=== PATIENT | female | born 1955 | race Caucasian/White ===

== ENCOUNTER 2024-01-06 08:40 | Observation (INO) ==
--- NOTE | 2023-12-31 08:52 | Anesthesiology Consultation ---
Date of Service December 31, 2023 Assessment & Plan (1) Encounter for pre-operative examination: Plan - right arm restriction. - medical clearance 12/23/23: "...knee replacement...estimated risk of adverse outcome with non-cardiac surgery. Very low risk. Estimated rate of myocardial infarction, pulmonary edema, ventricular fibrillation, cardiac arrest or complete heart block 0.4%..." - Outpatient joint assessment: Patient is currently scheduled for inpatient pathway. If re-evaluated and patient/surgeon requests outpatient pathway, patient is acceptable candidate for outpatient joint program from anesthesia standpoint pending surgeon's office assessment of pt motivation/support/completion of same day joint program preop requirements. - Per coding file clerk on 12/30/23: No known infectious disease contacts, current infectious disease symptoms in past 10 days or COVID positive test result in the past 30 days. Chart Review Chart Review: Acceptable Risk for Surgery and Patient NOT seen in Pre Admission Testing Consults Requested none History Surgery Operation Date: 01/06/24 10:10 Proposed Procedures p Left Total Knee Arthroplasty - Carlos Mckeon MD Height/Weight Height: 4 ft 10 in Weight: 88.451 kg Allergies Allergy/AdvReac Type Severity Reaction Status Date / Time erythromycin base Allergy Intermediate ITCHY RASH Verified 01/06/24 09:05 house dust mite Allergy Unknown per Verified 01/06/24 09:05 allergy testing Medications Home Medications Medication Instructions Recorded Confirmed Last Taken CPAP Machine #1 ea 09/20/19 04/03/23 Unknown ibuprofen 400 mg tablet 400 mg PO Q8H PRN Pain 03/31/23 01/06/24 12/23/23 Past Medical History Medical History Breast CA (~2011) diagnosed 10/2011--s/p right lumpectomy with LN dissection; s/p chemo/radiation Right UE restriction History of bronchitis History of COVID-19 diagnosed 09/27/2020 > resolved Osteoarthritis Sleep apnea cpap Past Family History Family History Sister Diabetes Breast cancer, Onset Age: 56 Hypertension Brother Diabetes Colorectal cancer, Onset Age: 35 Hypertension Family hx colonic polyps Mother Diabetes Hypertension Father Diabetes Hypertension Other No family history of adverse response to anesthesia Past Surgical History Surgical History History of arthroscopy of left knee History of carpal tunnel release of both wrists History of colonoscopy with polypectomy History of esophagogastroduodenoscopy (EGD) History of lumpectomy of right breast with lymph node removal History of right breast biopsy malignant History of thumb surgery right tendon release History of tooth extraction History of total hysterectomy with bilateral salpingo-oophorectomy (BSO) History of wisdom tooth extraction Hx of section x2 Hx of tubal ligation Status post trigger finger release right thumb Social History Smoking Status: Never smoker Do You Dip or Chew Tobacco: No Hx Alcohol Use: Yes Alcohol type: wine alcohol intake frequency: holidays/special occasions only Hx Substance Use: No substance use type: does not use Testing Laboratory Results 12/19/23 WBC: 7.7 H/H: 12/37 PLATELETS: 279,000 SODIUM: 140 POTASSIUM: 4.1 CHLORIDE: 111 CO2: 21 BUN: 18 CREATININE: 0.6 GLUCOSE: 101 PT: 12 INR: 1 TYPE AND SCREEN: B positive Electrocardiogram Date: 04/01/23 NSR, rate 67 bpm Chest X-Ray Date: 12/19/23 *1view* No acute process. Echocardiogram Date: 07/19/19 EF 65% Normal LV regional wall motion abnormalities No LVH Grade I diastolic dysfunction No significant valvular pathology
[~2024-01-06 08:40] MED LIST: BUPIVACAINE 0.5 % 5 MG/1 ML PF 10ML VIAL ONE; ROPIVACAINE 0.5% 5 MG/ML 30 ML VIAL ONE
--- NOTE | 2024-01-06 09:15 | Anesthesiology Consultation ---
Date of Service January 06, 2024 Assessment & Plan Chart Review Chart Review: Acceptable Risk for Surgery Consults Requested none History Surgery Operation Date: 01/06/24 10:10 Proposed Procedures p Left Total Knee Arthroplasty - Carlos Mckeon MD Height/Weight Height: 4 ft 10 in Weight: 88.451 kg Allergies Allergy/AdvReac Type Severity Reaction Status Date / Time erythromycin base Allergy Intermediate ITCHY RASH Verified 01/06/24 09:05 house dust mite Allergy Unknown per Verified 01/06/24 09:05 allergy testing Medications Home Medications Medication Instructions Recorded Confirmed Last Taken CPAP Machine #1 ea 09/20/19 04/03/23 Unknown ibuprofen 400 mg tablet 400 mg PO Q8H PRN Pain 03/31/23 01/06/24 12/23/23 Past Medical History Medical History Breast CA (~2011) diagnosed 10/2011--s/p right lumpectomy with LN dissection; s/p chemo/radiation Right UE restriction History of bronchitis History of COVID-19 diagnosed 09/27/2020 > resolved Osteoarthritis Sleep apnea cpap Past Family History Family History Sister Diabetes Breast cancer, Onset Age: 56 Hypertension Brother Diabetes Colorectal cancer, Onset Age: 35 Hypertension Family hx colonic polyps Mother Diabetes Hypertension Father Diabetes Hypertension Other No family history of adverse response to anesthesia Past Surgical History Surgical History History of arthroscopy of left knee History of carpal tunnel release of both wrists History of colonoscopy with polypectomy History of esophagogastroduodenoscopy (EGD) History of lumpectomy of right breast with lymph node removal History of right breast biopsy malignant History of thumb surgery right tendon release History of tooth extraction History of total hysterectomy with bilateral salpingo-oophorectomy (BSO) History of wisdom tooth extraction Hx of section x2 Hx of tubal ligation Status post trigger finger release right thumb Social History Smoking Status: Never smoker Do You Dip or Chew Tobacco: No Hx Alcohol Use: Yes Alcohol type: wine alcohol intake frequency: holidays/special occasions only Hx Substance Use: No substance use type: does not use
[2024-01-06] MEDS ORDERED: LIDOCAINE 2% 2 ML VIAL/AMP(20MG/ML) INFIL ONE (09:21)
[2024-01-06] MEDS ORDERED: ONDANSETRON INJ 2 MG/ML 2 ML VIAL ONE (09:21)
[2024-01-06] MEDS ORDERED: PROPOFOL IV EMULSION 10 MG/ML 20 ML VIAL IV ONE ×2 (09:21→13:55)
[2024-01-06] MEDS ORDERED: MIDAZOLAM HCL 1 MG/ML 2ML VIAL ONE ×3 (09:21→11:28)
[2024-01-06] MEDS ORDERED: fentaNYL citrate PF 100 MCG/2 ML VIAL ONE (09:21)
[2024-01-06] MEDS: LR 60ML/HR IV SCH (09:25)
[2024-01-06] MEDS: ACETAMINOPHEN 500 MG TAB PO SCH ×2 (09:27→21:21)
[2024-01-06] MEDS: oxyCODONE HCL 10 MG TABCR (OxyCONTIN) PO SCH (09:27)
[2024-01-06] MEDS: CeleBREX 200 MG CAP PO SCH (09:27)
[2024-01-06] MEDS: METOCLOPRAMIDE HCL 10 MG TABLET PO SCH (09:27)
[2024-01-06] MEDS: FAMOTIDINE 20 MG TAB PO SCH (09:27)
[2024-01-06] MEDS: traMADol HCL 50 MG TABLET PO SCH (09:27)
[2024-01-06] MEDS: GABAPENTIN 300 MG CAP PO SCH (09:27)
[2024-01-06] MEDS ORDERED: fentaNYL citrate PF 100 MCG/2 ML VIAL IV PRN (10:22)
[2024-01-06] MEDS ORDERED: HYDROmorphone INJ 2 MG/ML SYR/VIAL IV PRN (10:22)
[2024-01-06] MEDS ORDERED: PROMETHAZINE HCL 6.25 MG in SODIUM CHLORIDE 0.9% 50 ML IV PRN (10:22)
[2024-01-06] MEDS ORDERED: ONDANSETRON INJ 2 MG/ML 2 ML VIAL IV PRN ×2 (10:22→14:16)
[2024-01-06] MEDS ORDERED: ePHEDrine sulfate 50 MG/ML AMP IV PRN (10:22)
[2024-01-06] MEDS ORDERED: ATROPINE SULFATE 0.1 MG/ML 10ML SYR IV PRN (10:22)
[2024-01-06] MEDS: TRANEXAMIC ACID 1,000 MG **IV Pre-op IV SCH (10:50)
--- NOTE | 2024-01-06 10:54 | History & Physical Bridge Note ---
Date of Service January 06, 2024 History & Physical Bridge Note I have examined the patient, reviewed the History & Physical and in the interval since the performance of the History & Physical I have noted the following changes of clinical significance: no changes noted
[2024-01-06] MEDS ORDERED: PHENYLEPHRINE HCL 10 MG/ML VIAL ONE (11:35)
--- OUTSIDE RECORDS SUMMARY | 2024-01-06 11:59 | External Medical Summary | Continuity of Care Document ---
Author Name Unknown Organization [address] Address [address] [place], [place] [id number] Care Team Providers Care Care Giver Name Role Phone Anastasia Hannon Primary Care Physician [phone] [id number] Date(s): 12/23/23 - 12/23/[address] [address] [phone] Encounter Diagnosis Pre-op exam(Discharge Diagnosis) - 12/23/23 HEATHER on CPAP(Discharge Diagnosis) - 12/23/23 Discharge Disposition: Home or Self Care Attending Physician: DORINA Hannon Tara Referring Physician: DORINA Hannon Tara Allergies, Adverse Reactions, Alerts Substance Reaction Severity Status erythromycin hives Active Dust mite reacted positive to testing Active Assessment and Plan Extracted from: Title:pre op Author:DORINA Hannon Tara Date: 1.Pre-op exam Pt is a non smoker rare etoh and no illicit substances. She has HEATHER for which she uses CPAP. See #2. Her EKG from March 2023 howednormal sinus rhythm normal EKG. No CP or SOB that would warrant repeat EKG. Her labs from 12/19/23 were unremarkable. Estimated Risk of Adverse Outcome with Non-cardiac Surgery Very Low Risk Estimated Rate of Myocardial Infarction, Pulmonary Edema, Ventricular Fibrillation, Cardiac Arrest, or Complete Heart Block 0.4 %\ May proceed with surgery. 2.HEATHER on CPAP Acute/Chronic: chronic Goal:Resolution/ control Status:stable/controlled Data: records/pt report Plan:Using CPAP nightly. No issues. time spent reviewing chart, face to face visit, ordersand documentation: 36 min Immunizations Given and Recorded Vaccine Date Status Refusal Reason pneumococcal 20-valent conjugate vaccine 08/25/23 Given SARS-CoV-2 (COVID-19) mRNA-1273 vaccine 1 05/04/21 Recorded SARS-CoV-2 (COVID-19) mRNA-1273 vaccine 2 04/06/21 Recorded influenza virus vaccine, inactivated 09/09/20 Octavio rded influenza virus vaccine, inactivated 08/27/19 Octavio rded influenza virus vaccine, inactivated 08/27/18 Octavio rded influenza virus vaccine, inactivated 08/26/13 Give n influenza virus vaccine, inactivated 08/13/12 Give n influenza virus vaccine, inactivated 08/02/11 Octavio rded zoster vaccine, inactivated 11/24/19 Given zoster vaccine, inactivated 09/10/19 Given tetanus/diphtheria/pertuss, acel (Tdap) 01/07/12 G iven tetanus/diphtheria/pertuss, acel (Tdap) 03/26/07 R ecorded tetanus/diphtheria/pertuss, acel (Tdap) 12/16/02 R ecorded pneumococcal 23-valent vaccine 01/07/12 Given pneumococcal 23-valent vaccine 10/01/96 Recorded pneumococcal 23-valent vaccine 3 10/01/96 Recorded zoster vaccine live 12/25/11 Given hepatitis A adult vaccine 06/11/10 Recorded 1Result Comment: 2022-08-21: Historical information-source unspecified 2Result Comment: 2022-08-21: Historical information-source unspecified 3Result Comment: [08/26/2013 Uncharted] duplicate Medications CPAP machine Start: 05/27/19 16:08:00 EDT, CPAP machine, eRx Product Type: Supply, See Instructions, Disp# 1 unit, CPAP machine with tubing/supplies & humidifier nightly use, send report in 30 days on compliance & results Start Date: 05/27/19 Status: Ordered CPAP mask & supplies Start: 09/10/19 8:15:00 EDT, CPAP mask & supplies, eRx Product Type: Supply, See Instructions, Disp# 1 each, full face mask with tubing & supplies - order good for lifetime use G47.33, Note to Pharmacy: fit to comfort with mask type when needed Start Date: 09/10/19 Status: Ordered ketoconazole 2% topical cream Start: 11/25/23 9:32:00 EST, 1 appl, topical, bid, Disp# 30 g, Refills: 2, To red scaly fungal areas BID PRN, Pharmacy: [id number] Start Date: 11/25/23 Status: Ordered meloxicam 15 mg oral tablet Start: 02/19/23 8:26:00 EDT, 1 tab, PO, Daily, Disp# 30 tab, Refills: 2, Pharmacy: [id number] Start Date: 02/19/23 Status: Ordered Soolantra 1% topical cream Start: 08/21/22 8:19:00 EDT, See Instructions, Disp# 60 g, Refills: 2, To face daily, Pharmacy: [id number] Start Date: 08/21/22 Status: Ordered Valtrex 1 g oral tablet Start: 11/20/22 8:56:00 EST, See Instructions, Disp# 12 tab, Refills: 1, 2 tab PO at onset of cold sore, repeat in 12 hours then stop, Pharmacy: [id number] Start Date: 11/20/22 Status: Ordered Mental Status 12/23/23 Barriers to Learning one year None evide nt Mandatory Health Literacy Documentation Yes Health Literacy Communication Barriers N ever Primary Language Maori Problem List Condition Confirmation Course Effective Dates Status H ealth Status Informant Arthritis of left knee Confirmed Active Multiple nevi Confirmed Active Chondromalacia, left knee Confirmed Active Family history of diabetes mellitus 1 Confirmed Active Stress incontinence in female 2 Confirmed Active FH: breast cancer in first degree relative Confirmed 12/24/11 Active FH: colon cancer 3, 4 Confirmed 12/24/11 Active FHx: uterine cancer Confirmed 12/24/11 Active Herpes simplex Confirmed Active History of breast cancer Confirmed Active INSOMNIA Confirmed Active Iron overload Confirmed Active Lentigo Confirmed Active Morbid obesity (disorder) Confirmed Active HEATHER on CPAP Confirmed Active Osteoarthritis of left knee Confirmed Active Osteopenia 5 Confirmed 06/03/12 Active Left knee pain Confirmed Active Tinea versicolor Confirmed Active Reactive airway disease Confirmed Active Rosacea Confirmed Active Medial meniscus tear Confirmed Active Weight disorder Confirmed Active 1mother, father, sister, brother 2only with coughing 3Brother at 35 yr. 4Father (?) 5--1.1 LS spine Diagnosis Diagnosis Type Effective Dates Health Status Cl[facility] branden Service Informant Pre-op exam Discharge Diagnosis 12/23/23 HEATHER on CPAP Discharge Diagnosis 12/23/23 Procedures Procedure Date Related Diagnosis Body Site Status Mammogram 1 04/08/23 Completed Procedure 2 04/03/23 Completed MRI of calf of left lower le g with contrast 3 03/25/23 Completed Colonoscopy 4 01/23/21 Completed Colonoscopy 5 01/23/[address] of chest w/ con 6 06/01/19 Comp leted Femoral neck DEXA scan 7 03/02/19 Completed Chest X-ray 8 12/21/18 Completed Colonoscopy 9 09/08/15 Completed Chest x-ray 10 02/27/15 Completed Colonoscopy normal 11 09/02/12 Com pleted DEXA - Dual energy X-ray germán ton absorptiometry 12 06/03/12 Completed Left Central Venous Cather w ith Subcutaneous [place] 12/30/11 Completed right partial mastectomy; se ntinel node biopsy 12/09/11 Completed KATARINA BSO - Total abdominal hy sterectomy and bilateral salpingo-oophorectomy 13 09/08/07 Completed Colonoscopy and polypectomy 14 07/16/07 Completed Bilateral tubal ligation 05/22/83 Completed Carpal tunnel decompression 15 Completed sections (two) C ompleted DeQuervaines release Comp leted Lumpectomy of breast-R Co mpleted port removal Completed S/P tooth extraction Comp leted Trigger thumb release Com pleted 1there is no mammographic evidence of malignancy. a 1 year screening mammogram is recommended 2Repair of left meniscus 31. moderately prominent DJD with high-grade loss of cartilage throughout the medial joint space compartment 2. a probable radial tear is identified of the body of the medial meniscus superimposed upon prominent mucoid degeneration of the medial menisus 3. grade 2 and grade 3 patellar chondromalacia diffusely 4. a moderate-sized joint effusioin is present along with a moderate-size complex medial popliteal cyst 5. a low-grade sprain of the MCL is suspected 4Impression: - The entire examined colon is normal. - No specimens collected. 5The entire examined colon is normal. No specimens collected. Repeat in 5 years. 61. unremarkable postoperative changes right axilla consistent with prior axillary dissection 2. slight nonspecific interstitial change mid and lower lung regions bilaterally 3. several pleual-based nodules within the right hemithorax with f/u recommended per fleischner criteria 7pt considered normal. Z score 0.3 - repeat February 2021 8No active disease in the chest. 9Nonbleeding internal hemorrhoids. Repeat in 5 years. 10No acute findings. No significant change. 11except internal hemorrhoids. Brother with colon cancer at age 35 12--1.1 LS spine 13[place] [facility] [place] 14hyperplastic polyp 15bilateral Vital Signs Most recent to oldest [Reference Range]: 1 Height 151 cm (12/23/23 1:10 PM) Patient Weight 88.9 kg (12/23/23 1:10 PM) Body Mass Index 38.99 kg/m2 (12/23/23 1:10 PM) Temperature [36.5-37.9 DegC] 36.7 DegC (12/23/23 1:10 PM) Heart Rate 74 bpm (12/23/23 1:10 PM) Respiratory Rate 18 br/min (12/23/23 1:10 PM) Blood Pressure 132/88mmHg (12/23/23 1:10 PM) Social History Social History Type Response Smoking Status Never smoked cigaret marques Sex [facility] Outpt Note * DORINA Hannon Tara: PERFORM Event Display: [facility] Outpt Note Authored Date: [id number] Chief Complaint Pre-op for left knee replacement. History of Present Illness Having knee replacement on 01/06/[address] Mckeon. Non smoker, rare drink, no illicit substances. No Claudication No Chest pain No SOB 2 flights of steps No Personal hx of anesthesia complications No Family hx of anesthesia complications No Dental issues No Personal of hx of VTE No Family hx of VTE No Family hx of sudden cardiac Review of Systems Constitutional: No fever, chills, sweats Pulmonary: No shortness of breath, dyspnea with exertion, cough, hemoptysis, wheezing, chest pain. Cardiovascular: No chest pain, palpitations, syncope, edema, cyanosis, claudication, orthopnea. Musculoskeletal: knee pain Neurologic: No headache, lightheadedness, dizziness, muscle weakness. Neuropathy in feet Psychiatric: No depression, anxiety, Endocrine: No weight change, heat or cold intolerance, tremor, insomnia, polyuria, polydipsia, polyphagia, abnormal hair growth, change in nails Physical Exam Vitals & Measurements T:36.7C HR:74(Monitored) RR:18 BP:132/88 SpO2:96% HT:151cm WT:88.900kg(Dosing) WT:88.9kg BMI:38.99 PHQ2 Data(Data Documented on:12/23/2023 13:10) Emotional health assessment NEGATIVE head- normocephalic eyes- PERRLA , conjunctiva clear, sclera white, anicteric, neck-no lymphadenopathy, masses, or thyromegaly, +carotid pulses, no bruits, trachea midline Pulmonary- chest expansion symmetric, CTA (clear to auscultation), eupnea, no adventitious sounds (rales, crackles, wheezes) CV (cardiovascular)- RRR no m/r/g (systolic ejection murmur, rubs, gallops), good peripheral perfusion extremitiesNo edema or erythema. radial pulses present skin-good turgor w/o lesions, redness, cyanosis, edema nails- no clubbing or deformities w good cap refill Neuro:Alert, Oriented. Psy:no homicidal or suicidal ideations. Assessment/Plan 1.Pre-op exam Pt is a non smoker rare etoh and no illicit substances. She has HEATHER for which she uses CPAP. See #2. Her EKG from March 2023 howednormal sinus rhythm normal EKG. No CP or SOB that would warrant repeat EKG. Her labs from 12/19/23 were unremarkable. Estimated Risk of Adverse Outcome with Non-cardiac Surgery Very Low Risk Estimated Rate of Myocardial Infarction, Pulmonary Edema, Ventricular Fibrillation, Cardiac Arrest,or Complete Heart Block 0.4 %\ May proceed with surgery. 2.HEATHER on CPAP Acute/Chronic: chronic Goal:Resolution/ control Status:stable/controlled Data: records/pt report Plan:Using CPAP nightly. No issues. time spent reviewing chart, face to face visit, ordersand documentation: 36 min Problem List/Past Medical History Ongoing Arthritis of left knee Chondromalacia, left knee Family history of diabetes mellitus FH: breast cancer in first degree relative FH: colon cancer FHx: uterine cancer Herpes simplex History of breast cancer INSOMNIA Iron overload Left knee pain Lentigo Medial meniscus tear Morbid obesity (disorder) Multiple nevi HEATHER on CPAP Osteoarthritis of left knee Osteopenia Reactive airway disease Rosacea Stress incontinence in female Tinea versicolor Weight disorder Historical Acute contact dermatitis ASCVD. Breast ca Bronchitis Changing skin lesion Chemotherapy Community acquired pneumonia Cough Eclipse nevi Exertional shortness of breath Fungal infection of skin Hives Impaired fasting glucose Need for prophylactic vaccination and inoculation against influenza Obstructive sleep apnea syndrome Partial mastectomy Pneumonia ROUTINE GENERAL MEDICAL EXAMINATION AT A HEALTH CARE FACILITY Sinus congestion Sleep apnea Procedure/Surgical History Mammogram (04/08/2023)Procedure (04/03/2023)MRI of calf of left lower leg with contrast (03/25/2023)Colonoscopy (01/23/2021)Colonoscopy (01/23/2021)CT of chest w/ con (06/01/2019)Femoral neck DEXA scan (03/02/2019)Chest X-ray (12/21/2018)Colonoscopy (09/08/2015)Chest x-ray (02/27/2015)Colonoscopy normal (09/02/2012)DEXA - Dual energy X-ray photon absorptiometry(06/03/2012)Left Central Venous Cather with Subcutaneous [place] (12/30/2011)right partial mastectomy; sentinel node biopsy (12/09/2011)KATARINA BSO - Total abdominal hysterectomy and bilateralsalpingo- oophorectomy (09/08/2007)Colonoscopy and polypectomy (07/16/2007)Bilateral tubal ligation (05/22/1983)Trigger thumb releaseDeQuervaines releaseCarpal tunnel decompressionLumpectomy of breast-Rcesarean sections (two)port removalS/P tooth extraction Medications ivermectin topical(Soolantra 1% topical cream), See Instructions, 2 refills ketoconazole topical(ketoconazole 2% topical cream), 1 appl, topical, bid, 2 refills meloxicam(meloxicam 15 mg oral tablet), 15 mg= 1 tab, PO, Daily, 2 refills unlisted medication(CPAP machine), See Instructions unlisted medication(CPAP mask & supplies), See Instructions valACYclovir(Valtrex 1 g oral tablet), See Instructions, 1 refills Allergies Dust mitereacted positive to testing erythromycinhives Social History Smoking Status Never smoked cigarettes Alcohol - No Risk Use:Current Type:Wine Frequency:1-2 times per month Average drinks per episode in last year:1 Employment/School Status:Employed Description:accounts payable at [employer] Exercise - Does not exercise Times per week:3-4 times/week Exercise type:ellipitical, cardio, strength training, rowing Home/Environment Lives with:Spouse Home equipment:CPAP/BiPAP Substance Abuse - Denies Substance Abuse Tobacco - Denies Tobacco Use Use:Never smoker Family History Breast cancer: Sister (Dx at 55 years). Colon cancer..: Brother. Diabetes: Mother, Father, Sister and Brother. Endometrial carcinoma: Mother (Dx at 73 years). Heart murmur: Sister. High Blood Pressure: Sister and Brother. Hypertension: Sister and Brother. Skin cancer: Brother. Health Status Family Member(s) Brother: History is negative Family Member(s) Relationship: Mother, Age: 75 Years, Cause: uterine cancer Relationship: Father, Age: 83 Years, Cause: possibly colon cancer Immunizations Vaccine Date Status pneumococcal 20-valent conjugate vaccine 08/25/2023 Given SARS-CoV-2 (COVID-19) mRNA-1273 vaccine 05/04/2021 Recorded Comments : 2022-08-21: Historical information-source unspecified SARS-CoV-2 (COVID-19) mRNA-1273 vaccine 04/06/2021 Recorded Comments : 2022-08-21: Historical information-source unspecified influenza virus vaccine, inactivated 09/09/2020 Recorded zoster vaccine, inactivated 11/24/2019 Given zoster vaccine, inactivated 09/10/2019 Given influenza virus vaccine, inactivated 08/27/2019 Recorded influenza virus vaccine, inactivated 08/27/2018 Recorded influenza virus vaccine, inactivated 08/26/2013 Given influenza virus vaccine, inactivated 08/13/2012 Given tetanus/diphtheria/pertuss, acel (Tdap) 01/07/2012 Given pneumococcal 23-valent vaccine 01/07/2012 Given zoster vaccine live 12/25/2011 Given influenza virus vaccine, inactivated 08/02/2011 Recorded hepatitis A adult vaccine 06/11/2010 Recorded tetanus/diphtheria/pertuss, acel (Tdap) 03/26/2007 Recorded tetanus/diphtheria/pertuss, acel (Tdap) 12/16/2002 Recorded pneumococcal 23-valent vaccine 10/01/1996 Recorded Recommendations Health Maintenance Pending(in the next year) OverDue Adult Influenza Vaccine due05/09/23and every 1year Due Adult COVID-19 Vaccination due12/23/23Unknown Frequency Adult Social Determinants of Health Screening due12/23/23Unknown Frequency Adult Tdap/Td Vaccine due12/23/23Unknown Frequency Satisfied(in the past 1 year) Satisfied Body Mass Index on12/23/23.Satisfied by DARIUSZ Suh Jenna Lipid Screening on08/15/23.Satisfied by Contributor_system, [id number] Lab Results Test Name Test Result Date/Time Na 140 mmol/L 12/19/2023 11:56 EST K 4.1 mmol/L 12/19/2023 11:56 EST Cl- 111 mmol/L 12/19/2023 11:56 EST HCO3 21 mmol/L 12/19/2023 11:56 EST Anion Gap 8 mmol/L 12/19/2023 11:56 EST BUN 18 mg/dL 12/19/2023 11:56 EST Cret 0.61 mg/dL 12/19/2023 11:56 EST eGFR CKD-EPI >90 mL/min/1.73 m2 12/19/2023 11:56 EST Glu 101 mg/dL 12/19/2023 11:56 EST Ca 9.7 mg/dL 12/19/2023 11:56 EST WBC 7.75 K/uL 12/19/2023 11:56 EST Hgb 12.8 g/dL 12/19/2023 11:56 EST Hct 37.6 % 12/19/2023 11:56 EST RBC 4.00 M/uL 12/19/2023 11:56 EST MCV 94.0 fL 12/19/2023 11:56 EST MCHC 34.0 g/dL 12/19/2023 11:56 EST MCH 32.0 pg 12/19/2023 11:56 EST RDW 12.8 % 12/19/2023 11:56 EST Plts 279 K/uL 12/19/2023 11:56 EST MPV 10.3 fL 12/19/2023 11:56 EST Type of Diff: AUTO 12/19/2023 11:56 EST Immature Gran% 0.1 % 12/19/2023 11:56 EST Neut% 64.6 % 12/19/2023 11:56 EST Lymph% 28.0 % 12/19/2023 11:56 EST [place]% 5.3 % 12/19/2023 11:56 EST Baso% 0.1 % 12/19/2023 11:56 EST Eos% 1.9 % 12/19/2023 11:56 EST Immat Gran, Abs 0.01 K/uL 12/19/2023 11:56 EST Neut, Abs 5.00 K/uL 12/19/2023 11:56 EST Lymph, Abs 2.17 K/uL 12/19/2023 11:56 EST [place], Abs 0.41 K/uL 12/19/2023 11:56 EST Baso, Abs 0.01 K/uL 12/19/2023 11:56 EST Eos, Abs 0.15 K/uL 12/19/2023 11:56 EST INR 1.0 12/19/2023 11:57 EST PT 12.7 seconds 12/19/2023 11:57 EST Electronic Signature on File CC: Carlos Mckeon MD [address] [id number] CC: Nneka William PA-C [address] [place] [address] Electronically Reviewed/Signed by: DORINA Sidhu Author Signature Dt/Tm:12/23/2023 03:47 PM Department of Family Medicine TB Patient Care team information Care Team Personnel Name: DORINA Hannon Tara Position: Nurse Pract - Family Med Member Role: Primary Care Provider Address: Address: [address] [place] [id number] [place] Name: MD Pandey Claudia J Position: Physician - Radiologist Member Role: Lifetime Relationship Address: Address: [address] [place] [address] [place] Name: CARLIN Bush Lynn Position: Physician Currency Machine Operator Exempt - Vasc Surg Member Role: Lifetime Relationship Address: Address: [address] [place] [address] [place] Care Team Related Persons Name: AGUSTÍN BLAND Address: home [address], [place] [phone] Name: AGUSTÍN BLAND Address: [place] Address: home [address], [place] [id number]
[2024-01-06] MEDS: ceFAZolin 2000MG 2,000 MG/15 ML SYR IV SCH ×2 (12:03→19:58)
[2024-01-06] MEDS: ROPIV 0.5% 246mg, Ketorolac 30mg, EPINEPHrine 0.5mg in NSS INFIL SCH (12:03)
[2024-01-06] MEDS: ORTHO JOINT ANESTHETIC ONE (12:04)
[2024-01-06] MEDS: VANCOMYCIN HCL 1000MG/20ML VIAL ONE (13:03)
[2024-01-06] MEDS ORDERED: ALUMINUM/MAGNESIUM SUSP 30 ML UDC PO PRN (14:16)
[2024-01-06] MEDS ORDERED: traMADol HCL 50 MG TABLET PO PRN (14:16)
[2024-01-06] MEDS ORDERED: MAGNESIUM HYDROXIDE SUSP 30 ML UDC PO PRN (14:16)
[2024-01-06] MEDS ORDERED: diphenhydrAMINE 50 MG/ML VIAL IV PRN (14:16)
[2024-01-06] MEDS ORDERED: NALOXONE HCL 0.4 MG/1 ML VIAL/CARP IV PRN (14:16)
[2024-01-06] MEDS ORDERED: bisacodyL 10 MG SUPP PR PRN (14:16)
[2024-01-06] MEDS ORDERED: METOCLOPRAMIDE HCL INJ 5 MG/ML 2 ML VIAL IV PRN (14:16)
[2024-01-06] MEDS ORDERED: HYDROmorphone INJ 0.5 MG/0.5 ML SYR IV PRN (14:16)
--- NOTE | 2024-01-06 14:16 | Operative Report ---
Post Operative Report Pre & Post Diagnosis Operation Date: 01/06/24 10:10 Pre-Op Diagnosis: Osteoarthritis Knee Left Post-Op Diagnosis: Osteoarthritis Knee Left I identified the patient and participated in the time-out.: Yes Procedure Operation Date: 01/06/24 10:10 Actual Procedures p Left Total Knee Arthroplasty(Left) - Carlos Mckeon MD Surgeon Carlos Mckeon MD Vehicle Maintenance Technician Hyacinth Estevez PA-Emmanuel Estimated Blood Loss 10 Findings Consistent with Post-Op Diagnosis Specimens Left knee bone and soft tissue Description of Procedure I was present during the entire case assisting with positioning, prepping, draping, wound retraction, wound closure, and dressing application. No fellow present. Please see Dr. Mckeon procedure note for specifics of the case. I attest to the content of the Intraoperative Record and any orders documented therein. Any exceptions are noted below.
--- NOTE | 2024-01-06 14:28 | Operative Report ---
Post Operative Report Pre & Post Diagnosis Operation Date: 01/06/24 10:10 Pre-Op Diagnosis: Osteoarthritis Knee Left Post-Op Diagnosis: Osteoarthritis Knee Left I identified the patient and participated in the time-out.: Yes Procedure Operation Date: 01/06/24 10:10 Actual Procedures p Left Total Knee Arthroplasty(Left) - Carlos Mckeon MD Surgeon Carlos Mckeon MD Martial Arts Instructor sandro COELHO nnnat resident or fellow available Estimated Blood Loss 10 Findings Consistent with Post-Op Diagnosis Specimens bone and tissue Anesthesia Type MAC Spinal Regional Complications none Disposition Accompanied Patient To Recovery: No Disposition: Recovery Room Indications Sara is 68 years old. She is status post a knee arthroscopy within the last year. This did not relieve her symptoms and her osteoarthritis has progressed. This has been refractory to nonsurgical treatment and she wishes to have her knee replaced. Description of Procedure Informed consent. Patient identified. She identified the operative site as the left knee. I marked with my initials. A preop surgical timeout was performed. A preop dose of IV antibiotics was given. TXA was given. She was taken to the operating room positioned supine on the OR table. The anesthetic was administered. Bony prominences were inspected and padded. A bump was placed under her left hip. A padded post under her left calf and a tourniquet on the left thigh. The exam under anesthesia revealed range of motion 0 to 120 degrees of flexion with intact ligament stability. DVT prophylaxis with mechanical devices intraoperatively. Postoperatively mobility mechanical devices and Eliquis starting the morning after surgery The leg was prepped and draped in usual sterile fashion. Limb exsanguinated wi th the Esmarch. Tourniquet inflated to 275 mmHg. A midline longitudinal incision was made of about 25 cm in length. Medial parapatellar arthrotomy. Soft tissue on the anterior aspect of the distal femur was resected. I did not need to release the synovial layer in the lateral gutter. The retropatellar fat pad was resected and a medial release was performed. The patella was easily everted and the knee was flexed. The ACL and PCL were intact and they were excised. The tibia was subluxated. The lateral compartment looked relatively normal except for some marginal osteophytes on the femur and tibia. Osteophytes were removed as encountered. The lateral meniscus was removed. The medial meniscus was deficient. There were large areas of grade 4 change on the femur and tibia weightbearing surface. The patella was diffuse grade 3 with some small areas of grade 4. Medial meniscus excised. A pilot plant operator helper hole was drilled into the tibia just in front of the lateral tibial spine. The intramedullary alignment yue was inserted. The 3 degree cutting block was applied and set to take 10 mm off of the lateral side corresponding to about 6 mm medially. Block was pinned in the place and the extra medullary alignment yue was utilized to confirm alignment and slope. Bisected second ray and ankle joint. The cut was made and sized to a 3 revision tray. Metal Hardener hole drilled into the distal femur and the distal femoral cutting guide was inserted and pinned into place. 10 millimeter cut. 6 degrees left knee valgus. The cut was made and the extension gap was a symmetric 6. Distal femo ral sizing block was applied. 3 degree external rotation left knee. Sized to a 3. Pinned in place. Collateral ligaments protected and the cuts were made. The flexion gap was a loose 6. Posterior medial osteophyte removed. Nothing laterally. The epicondylar axis was marked out and matched the cuts. The box cutting guide was applied and lateralized and the box cut was made. I had to recut the box because the trial implant would not seat. After recutting the trial implant was able to be seated. Prior to this check flexion and extension gaps. After resecting the osteophytes etc. the knee was a 7 or 8 mm in both flexion and extension and symmetric. The tibia was then prepared with the multiple long drills and reamers for the mobile-bearing revision tray. I did this because of her BMI. The keel was punched. The alignment was set to the tibial tubercle. The trial did sat about a middle millimeter proud and I went and repunched and drilled to confirm adequate depth. Trialing was performed and did well with the 7 mm insert. Attention was turned to the patella which was selected to be a 32. The guide was set to preserve 14 mm of bone. This cut was made. Residual patellar thickness was 13. The paddle was aligned to the knee in slight flexion and aligned for maximal coverage. The locals were drilled. Patellar tracking was off but this was corrected once the tourniquet was let down. The trial instruments were removed. The tibia canal was plugged. Ortho joint mix injected into the back the knee. Copious lavage was performed. 2 bags of Simplex P cement were mixed and then while in a doughy state the components were cemented into place femur tibia and then the patella. The knee was held in full extension with a trial spacer until the cement had hardened. At this time the composite patellar thickness was 23. Once the extensor mechanism had been closed the knee flexion was 125 degrees. I trialed with the 7 and 8 mm thickness. The 8 allow full extension and millimeter varus valgus at 90 and 1+ LCL and no MCL at mid position/20 degrees. The patella tracked fine with no hands technique. This final polyethylene was inserted. The knee was irrigated posteriorly in the back the knee was inspected and cement removed as encountered. The final polyethylene was inserted. Irrigation performed. Meticulous hemostasis. The tourniquet was let down after the cement had hardened. The extensor mechanism closed above the equator the patella with interrupted #2 FiberWire. Below the equator with running and interrupted #1 Vicryl. The skin was closed in layers with 0 and 2-0 Vicryl followed by barry. The leg was cleaned with wet and dry sponges and a soft sterile dressing was applied Xeroform 4 x 4's ABD soft wrap Jim wrap. She was sent to the floor with a knee immobilizer and plan to apply An incisional wound VAC postop day #1. She was awakened from anesthesia and taken to recovery room in stable condition. The resected bone and soft tissue were sent for specimen. Counts were correct and there were no complications. Blood loss was 10 cc. Collusion of the operation spoke to patient's and informed him of my findings. Rehab according to the standard total knee protocol. Components inserted were the J[employer]J attune knee a 32 patella a size 3 revision tibial tray with the larger stem but no extension. A size 3 x 8 mm thick polyethylene insert rotating platform and a standard size 3 left posterior stabilized femur. I attest to the content of the Intraoperative Record and any orders documented therein. Any exceptions are noted below.
[2024-01-06] MEDS ORDERED: IBUPROFEN 200 MG TAB PO PRN (14:49)
--- NOTE | 2024-01-06 14:59 | XRay Report ---
XR knee LT 1 or 2V routine CLINICAL HISTORY: Surgical Post Op TECHNIQUE: 2 views of the right knee were obtained. Comparison: Comparison is made to leg length radiograph 12/19/2023 FINDINGS: Patient is status post total knee arthroplasty with expected postsurgical changes including soft tiss ue swelling and subcutaneous emphysema. No periarticular lucency or hardware fracture is seen. IMPRESSION: Expected postoperative appearance status post placement of total knee arthroplasty. ACT 112: Negative or not required by law. Electronically signed by: Tyrell Veloz M.D. 01/06/2024 2:58 PM
[2024-01-06] MEDS: dexAMETHasone**PF** 10 MG/ML VIAL IV SCH (15:10)
[2024-01-06] MEDS: SODIUM CHLORIDE 0.9% 1,000 ML IV SCH (15:11)
--- NOTE | 2024-01-06 15:31 | Anesthesiology Progress Note ---
Date of Service January 06, 2024 Anesthesia Post Procedure Vital Signs Vital Signs: Temp Pulse Pulse Pulse Resp BP Pulse Ox 01/06/24 15:30 36.0 C L 67 16 117/62 97 01/06/24 15:00 01/06/24 15:00 36.5 C 77 18 127/67 98 01/06/24 14:40 36.4 C L 01/06/24 14:35 85 14 133/61 94 01/06/24 14:25 85 16 125/62 98 01/06/24 14:15 36.5 C 90 17 124/57 L 96 01/06/24 09:06 01/06/24 09:06 36.6 C 64 18 157/89 H 94 O2 Del Method O2 Flow Rate 01/06/24 15:30 Nasal Cannula 2 01/06/24 15:00 Nasal Cannula 2 01/06/24 15:00 Nasal Cannula 2 01/06/24 14:40 01/06/24 14:35 Room Air 01/06/24 14:25 Oxymask 5 01/06/24 14:15 Oxymask 5 01/06/24 09:06 Room Air, CPAP 01/06/24 09:06 Room Air, CPAP Pain Intensity Left Knee: Pain Intensity: 0 Transfer of Care Handoff Completed per policy Notes Mental Status: alert / awake / arousable and participated in evaluation Nausea / Vomiting: adequately controlled Pain: adequately controlled Airway Patency, RR, SpO2: stable & adequate BP & HR: stable & adequate Hydration State: stable & adequate Neuraxial Anesthesia: was administered and sensory block is resolving Anesthetic Complications: no major complications apparent and Pt Satisfied with anesthetic care
[2024-01-06] MEDS: KETOROLAC TROMETHAMINE 15 MG/ML VIAL IV SCH (16:01)
[2024-01-06] MEDS: oxyCODONE HCL IR 5 MG TAB (IMMEDIATE RELEASE) PO PRN (18:45)
--- NOTE | 2024-01-06 18:53 | Orthopedic Progress Note ---
Date of Service January 06, 2024 Assessment & Plan (1) Knee joint replacement status: Plan: Stable postop. Surgical findings reviewed and discussed. Postoperative plan is reviewed. Radiographs are reviewed and show good positioning of the components without evidence of complication. Adrian for DVT prophylaxis. We talked about her medications as well as exercises and rehab. Admission and Anticipated Discharge Date Admission Date: January 06, 2024 Subjective No problems postop. Sitting up in a chair. Pain is well-controlled. Physical Exam Physical Exam: 5 out of 5 ankle and toe plantarflexion dorsiflexion inversion eversion. Foot warm with good capillary refill less than 2 seconds. Sensation intact throughout the DP and PT pulses are both 1+. Brace is readjusted. Results & Data Vital Signs (Past 12 Hours) Vital Signs Temp Pulse Pulse Pulse Resp BP Pulse Ox 01/06/24 18:00 37.2 C 71 16 145/67 H 93 01/06/24 17:00 36.6 C 75 16 128/63 99 01/06/24 15:59 36.2 C L 78 16 113/63 98 01/06/24 15:30 36.0 C L 67 16 117/62 97 01/06/24 15:00 01/06/24 15:00 36.5 C 77 18 127/67 98 01/06/24 14:40 36.4 C L 01/06/24 14:35 85 14 133/61 94 01/06/24 14:25 85 16 125/62 98 01/06/24 14:15 36.5 C 90 17 124/57 L 96 01/06/24 09:06 01/06/24 09:06 36.6 C 64 18 157/89 H 94 O2 Del Method O2 Flow Rate 01/06/24 18:00 Room Air 01/06/24 17:00 Nasal Cannula 2 01/06/24 15:59 Nasal Cannula 2 01/06/24 15:30 Nasal Cannula 2 01/06/24 15:00 Nasal Cannula 2 01/06/24 15:00 Nasal Cannula 2 01/06/24 14:40 01/06/24 14:35 Room Air 01/06/24 14:25 Oxymask 5 01/06/24 14:15 Oxymask 5 01/06/24 09:06 Room Air, CPAP 01/06/24 09:06 Room Air, CPAP
[2024-01-06] MEDS: DOCUSATE SODIUM 100 MG CAP PO SCH (19:58)
[2024-01-06] MEDS: TRANEXAMIC ACID / 0.7% NACL 1,000 MG/100 ML BAG IV SCH (19:58)
[2024-01-06] MEDS: SENNA 8.6 MG TAB PO SCH (19:58)
[2024-01-07 06:59] LABS: Hematocrit (blood only) 34.1 % (37.0-47.0); Hemoglobin 11.6 g/dl (12.0-16.0); Mean Corpuscular Hemoglobin 31.3 pg (25.0-34.0); Mean Corpuscular Volume 91.9 fL (80.0-100.0); Mean Platelet Volume 10.5 fL (9.4-12.4); Platelet Count 262 K/uL (130-400); RDW Coefficient of Variation 12.1 % (11.5-14.5); RDW Standard Deviation 40.9 fL (36.4-46.3); Red Blood Count 3.71 M/uL (4.20-5.40); White Blood Count 14.76 K/ul (4.8-10.8)
[2024-01-07 07:13] LABS: BUN Creatinine Ratio 20.6 (10-20); Calcium 9.4 mg/dl (8.6-10.3); Creatinine Clr Calc Pharmacy 83.1 ml/min; Est GFR (African American) 108.3 ml/min; Est GFR (Non-African American) 93.5 ml/min; Potassium 4.5 mmol/L (3.5-5.1)
[2024-01-07] MEDS: dexAMETHasone 4 MG TAB PO SCH (07:28)
[2024-01-07] MEDS: MULTIVITAMIN TAB PO SCH (07:29)
[2024-01-07] MEDS: APIXABAN 2.5 MG TAB PO SCH (07:29)
--- NOTE | 2024-01-07 08:58 | Orthopedic Progress Note ---
Date of Service January 07, 2024 Assessment & Plan (1) Knee joint replacement status: Plan: POD1 s/p total knee arthroplasty, left, with Dr Mckeon WBAT with walker PT/OT Diet - regular Frequently ice and elevate with blankets stacked under ankle DVT prophylaxis: Eliquis 2.5mg twice a day for 4 weeks, TEDS x 3 weeks, foot pumps while in hospital Pain control: Tylenol 1000mg q 8hrs, oxycodone 5-10mg q4-6 hrs for severe/breakthrough pain pain, tramadol 50mg every 4 hours for moderate pain Prevena will be placed this morning and left on for one week. HH will remove after one week and apply new dressing Pt can dc the brace Discharge home with home health x 2 weeks Follow up as scheduled with [facility] in 2 weeks Pt deemed medically and orthopedically stable for discharge Admission and Anticipated Discharge Date Admission Date: January 06, 2024 Subjective Pt was seen and examined bedside. POD #1 s/p LTKA with Dr Mckeon. Pt was admitted last night for observation. No major events over night. Vitals are stable. Labs unremarkable. X-rays show normal post operative changed. Pt reports they are doing well and pain is controlled. They are tolerating PO intake and voiding adequate amounts. Working well with PT/OT. Pt denies F/C, N/V/D, SOB, CP. Pt deemed medically stable and ready for discharge. Review of Systems Review of Systems: per HPI Physical Exam Physical Exam: General: Pt laying in hospital bed AA&O, in NAD, calm and cooperative during exam Lower Extremity: Dressing in tact, minimal bloody saturation on. Incisions clean, dry and with minimal drainage and no surrounding erythema, warmth or purulent drainage. Pt has full ROM of ankle and all 5 digits. Pt has 5/5 strength with resisted DF/PF. SLR in tact. Calf supple and non tender. NVI with sensation to light touch distally and good distal pulses present. Lower extremity noted to have good color and temperature with no signs of vascular or lymphatic insufficiency. Results & Data Vital Signs (Past 12 Hours) Vital Signs Temp Pulse Resp BP Pulse Ox O2 Del Method O2 Flow Rate 01/07/24 08:05 36.7 C 65 18 126/70 94 Room Air 01/07/24 04:26 36.3 C L 61 16 139/76 98 Nasal Cannula 2 02/27/24 22:54 36.7 C 62 16 116/67 94 Room Air Laboratory Results 01/07/24 01/06/24 Range/Units 06:31 09:10 WBC 14.76 H (4.8-10.8) K/ul RBC 3.71 L (4.20-5.40) M/uL Hgb 11.6 L (12.0-16.0) g/dl Hct 34.1 L (37.0-47.0) % MCV 91.9 (80.0-100.0) fL MCH 31.3 (25.0-34.0) pg MCHC 34.0 (32.0-36.0) g/dL RDW Std Deviation 40.9 (36.4-46.3) fL RDW Coeff of John 12.1 (11.5-14.5) % Plt Count 262 (130-400) K/uL MPV 10.5 (9.4-12.4) fL Sodium 138 (136-145) mmol/L Potassium 4.5 (3.5-5.1) mmol/L Chloride 107 (98-107) mmol/L Carbon Dioxide 23 (21-32) mmol/L Anion Gap 8 (3-11) BUN 13 (6-23) mg/dl Creatinine 0.63 (0.6-1.2) mg/dl Est Cr Clr Drug Dosing 83.1 ml/min Est GFR ( Amer) 108.3 ml/min Est GFR (Non-Af Amer) 93.5 ml/min BUN/Creatinine Ratio 20.6 H (10-20) Glucose 122 H (70-99(Fasting)) mg/dl Calcium 9.4 (8.6-10.3) mg/dl Blood Type B Positive Antibody Screen NEGATIVE
--- NOTE | 2024-01-08 16:40 | Discharge Summary ---
Date of Service January 08, 2024 Admission HPI Per Admitting Provider History of Present Illness Sara Gan is a 68 year old Female who presents today for a Preoperative history and physical. She is scheduled for a left total knee arthroplasty with Dr. Mckeon on January 06, 2024. She is status post a left knee arthroscopy and partial medial meniscectomy with Dr. Mckeon in March 2023. Since then she has had a cortisone injection and viscosupplementation. Over the last 6 to 9 months her knee pain has advanced and progressed. She states that she has pain on a daily basis. She has pain with activities of daily living. She has limited motion due to pain in her left knee. Most of her pain is on the medial side of her knee. She has not had any new injury. She has been using a cane to assist with ambulation. She does not have a walker for use at home. She has pain with going up and down steps, pain at rest and also pain at night. She has tried [id number] anti-inflammatories such as Advil or Aleve. She is tried [id number] Tylenol. She has tried topical agents. She did have physical therapy last year which did not improve her left knee pain. Due to her persistent symptoms and failure of conservative treatment she wishes to proceed with an elective left total knee arthroplasty. Admission Exam Per Admitting Provider General: Well-dressed, well-nourished. Normal mood and affect. Alert and oriented x3. HEENT: Head: Atraumatic, normocephalic. Eyes: Extraocular movements intact, pupils equal round and reactive to light, sclera normal. Ears: Ears grossly n ormal, TMs are clear normal light reflex. Nose: Nares are patent bilaterally. Throat: Oropharynx clear mucous membranes moist good dentition uvula midline. Neck: Supple, no lymphadenopathy, nontender palpation, full range of motion. Cardiac: Regular rate and rhythm, normal S1, S2. No murmurs, rubs or gallops appreciated. Lungs: Clear to auscultation bilaterally. No adventitious sounds. No accessory muscle use. Abdomen: Soft, nontender, nondistended, normal bowel sounds heard in all 4 quadrants. Extremities: Focusing on the patient's LEFT lower extremity: Gait Antalgic Varus Alignment (of left knee) 1+ DP and 1+ PT pulses Capillary refill less than 2 seconds Sensation intact to light touch Motor strength: 5/5 Knee flexion and extension; ankle plantarflexion, dorsiflexion, inversion, and eversion. Knee (left) ROM: 0/ 2/ 125 Hip ROM: Painless, Equal to other side Active straight leg raise intact Small Effusion Ligament exam: ACL Intact, Endpoint intact PCL Intact, Endpoint intact 1+ MCL Laxity LCL Intact, Endpoint intact MEDIAL knee joint tenderness Principal Diagnosis left knee osteoarthritis Discharge Exam General: Pt laying in hospital bed AA&O, in NAD, calm and cooperative during exam Lower Extremity: Dressing in tact, minimal bloody saturation on. Incisions clean, dry and with minimal drainage and no surrounding erythema, warmth or purulent drainage. Pt has full ROM of ankle and all 5 digits. Pt has 5/5 strength with resisted DF/PF. SLR in tact. Calf supple and non tender. NVI with sensation to light touch distally and good distal pulses present. Lower extremity noted to have good color and temperature with no signs of vascular or lymphatic insufficiency. Discharge Data Allergies Allergy/AdvReac Type Severity Reaction Status Date / Time erythromycin base Allergy Intermediate ITCHY RASH Verified 01/06/24 09:05 house dust mite Allergy Unknown per Verified 01/06/24 09:05 allergy testing Procedures Performed Operation Date: 01/06/24 10:10 Actual Procedures p Left Total Knee Arthroplasty(Left) - Carlos Mckeon MD Ordered Studies 01/06/24 05:00 US - OR guided needle placemen Routine Hospital Course (1) Knee joint replacement status: Pt was seen and examined bedside. POD #1 s/p LTKA with Dr Mckeon. Pt was admitted last night for observation. No major events over night. Vitals are stable. Labs unremarkable. X-rays show normal post operative changed. Pt reports they are doing well and pain is controlled. They are tolerating PO intake and voiding adequate amounts. Working well with PT/OT. Pt denies F/C, N/V/D, SOB, CP. Pt deemed medically stable and ready for discharge. POD1 s/p total knee arthroplasty, left, with Dr Mckeon WBAT with walker PT/OT Diet - regular Frequently ice and elevate with blankets stacked under ankle DVT prophylaxis: Eliquis 2.5mg twice a day for 4 weeks, TEDS x 3 weeks, foot pumps while in hospital Pain control: Tylenol 1000mg q 8hrs, oxycodone 5-10mg q4-6 hrs for severe/breakthrough pain pain, tramadol 50mg every 4 hours for moderate pain Prevena will be placed this morning and left on for one week. HH will remove after one week and apply new dressing Pt can dc the brace Discharge home with home health x 2 weeks Follow up as scheduled with [facility] in 2 weeks Pt deemed medically and orthopedically stable for discharge Total Time Total Time Spent Total Time Spent (In Minutes): 15 Discharge Plan Discharge Items Patient Disposition: Home - Home Health Services Reason For Visit: Osteoarthritis Knee Left Discharge Diagnosis: Left knee osteoarthritis Activity: As commented below Lifting: None Bathing: May shower/bathe in 3 days Sexual Activity: Wait until after follow-up appointment Exercise/Sports: Wait until after follow-up appointment Weightbearing Comment: as tolerated with walker and immobilizer x 48 hrs Non-emergency contact: Surgeon Call non-emergency contact if: you have any medication questions, your pain is not controlled, your temperature is above 101.5, your wound has increased drainage and your wound pain has increased Follow-up/Referrals: Anastasia Hannon [Primary Care Provider] - Diet: Regular Addtl Attending Provider Instructions: New Medicine: * You will likely be taking one or more of these medications: 1. Eliquis 2.5 mg - You will be on Eliquis twice daily for 2 weeks with one refill, for a total of 4 weeks 2. Tylenol 1000mg every 8 hours 3. Tramadol - take as prescribed, every 4 hours as needed for moderate pain 4. Oxycodone - Take as prescribed every four to six hours for severe/breakthrough pain 5. Colace & Senokot - Take to prevent constipation which can be caused by narcotics. These can be bought [id number] at the pharmacy * The most common side effects of pain medicine and iron are nausea and constipation. If nausea or constipation is too much of a problem or if you have any questions about your new medicines or doses, call [facility] at . We will try to help you manage these issues. "VERY IMPORTANT TO READ AND REVIEW" Blood Clots and Blood Thinning Medicine: * You are given Eliquis during the immediate post-operative period to lessen the risk of blood clots forming in your legs and/or lungs. * The prescription is for 2.5 mg tablets. This to be take twice daily Physical Therapy: * Do your physical therapy at home. These are the exercises you learned while in the hospital (quad sets, leg raises, calf pumps, gluteal squeezes, knee bending, and heel props.) You should do these exercises 3-4 times per day. * You will either go to inpatient rehab ([facility]), home with Home Therapy and nursing or home with outpatient rehab. You should do rehab with the therapist 2-3 times per week. You should do therapy on your own daily. * You may bear full weight on your leg with crutches or walker unless otherwise advised. Home Exercise: * You were shown a series of exercises (heel props, heel slides, etc.) in the hospital. Do these exercises three to four times each day including the exercises you were shown in physical therapy. Walking: * You may be up for short periods of time. Standing and walking for 1-2 hours at a time is usually okay. You should not stand or walk for excessive periods of time as this may Cause increased pain and swelling. SELF CARE INSTRUCTIONS AFTER TOTAL KNEE REPLACEMENT A. You may need to continue a physical therapy program after discharge from the hospital. There are several options available to you. Your doctor will assist you in selecting the best one for you. 1. An out-patient facility 2 to 3 times a week for therapy or home therapy. 2. Continue working on all exercises taught to you in the hospital. Your goals should be to increase bending of your knee to 90 degrees and beyond and to fully straighten your knee. B. Your therapist will notify you when you are able to progress from a walker to a cane. C. Wear TEDS as much as possible.~ They may be removed at night for laundering. D. Do not place a pillow behind your knee when resting. A pillow at your ankle is okay. E. Ice your knee 15-20 minutes every 2-3 hours and elevate it above the level of your heart. F. You may shower tomorrow, cover the incision/bandage with a bag or plastic wrap. Do not submerge until the wound is completely healed (approximately 2 weeks). G. Anyone who is touching your surgical incision area should wash their hands and wear gloves. VERY IMPORTANT TO READ AND REVIEW a. There are a few signs you need to watch for after you are home. Call [facility] if you notice any of the followin. Increased severe knee pain. Some pain is expected especially when you exercise. 2. Increased swelling in your leg or knee; pain or swelling of the calf muscle in either lower leg. 3. Any fluid drainage from the incision. 4. Shortness of breath or chest pain. 5. Numbness and tingling in the surgical extremity B. Please call [facility] at if you have any concerns or questions about your operation or recovery. The doctor or his nurse will return your call promptly. C. Do not have any elective dental work or other elective procedures done for 6 weeks after your knee replacement. When you have any invasive procedure (dental cleaning, extraction, colonoscopy etc) performed, you will need to take antibiotics to prevent infection from developing in your artificial joint. Tell your other health care providers you have an artificial joint. My office will supply you with further information and the antibiotics. Call your doctor if: * Temperature above 101 degrees F. * Pain not relieved by pain medicine ordered. * Increased drainage or redness from incision. * Notify your doctor with any questions or concerns. Follow-up Visit: You will follow-up with Dr. Mckeon 10-14 days after surgery. The office number is . Avoid all tobacco products. If you need help to stop smoking, call [place]IT[facility] at . This is a free call. Pending Studies at Discharge: No Stand-Alone Forms: My [facility], Pain - Opioid Pain Management Medications and DC Order Prescriptions: New docusate sodium 100 mg Capsule 100 mg PO BID Qty: 20 0RF oxycodone 5 mg Tablet 5 - 10 mg PO Q4H PRN (Reason: pain) Qty: 24 0RF tramadol 50 mg Tablet 50 - 100 mg PO Q4H PRN (Reason: pain) Qty: 24 0RF acetaminophen [Tylenol Extra Strength] 500 mg Tablet 1,000 mg PO Q8 Qty: 30 0RF Eliquis 2.5 mg Tablet 2.5 mg PO BID 14 Days Qty: 28 0RF Continued (DME) CPAP Machine Misc See Dose Instructions .ROUTE .MEDSUPPLY Qty: 1 0RF Dose Instruction: As directed Rx Instructions: CPAP settings [id number], Capable of collecting AHI and compliance data with modem; DME=MANAGER GAS Discontinued ibuprofen 400 mg Tablet 400 mg PO Q8H PRN (Reason: Pain) Admission Data Admit Date/Time: 01/06/24 14:16 Attending Provider: Carlos Mckeon Admit Provider: Carlos Mckeon Primary Care Provider: Anastasia Hannon Other Providers: [facility],Home Healthcare Other Interventions: Discharge Summary Assessment (RN) Last Done: 01/07/24 08:38
== END 2024-01-07 11:11 | disposition home health service (06) ==
LOC: ASU 08:40 → 3E 08:40
DX: M17.12 Unilateral primary osteoarthritis, left knee; G47.33 Obstructive sleep apnea (adult) (pediatric); E66.9 Obesity, unspecified; Z88.1 Allergy status to other antibiotic agents; M25.762 Osteophyte, left knee; Z86.16 Personal history of COVID-19; Z68.41 Body mass index [BMI] 40.0-44.9, adult

== ENCOUNTER 2024-11-23 05:02 | Observation (INO) ==
--- NOTE | 2024-10-18 14:59 | PAT Medication Instructions ---
Medication Instructions Date of Service October 18, 2024 Home Medications Medication Instructions Recorded CPAP Machine #1 ea 09/20/19 acetaminophen 500 mg tablet (Tylenol Extra Strength) 1,000 mg PO Q8 PRN diphenhydramine HCl 25 mg capsule (Benadryl) 50 mg PO HS PRN meloxicam 15 mg tablet 15 mg PO DAILY PRN ASK your surgeon for instructions meloxicam 15 mg tablet 15 mg PO DAILY PRN Take morning of surgery With a small sip of water, OTHERWISE NOTHING TO EAT OR DRINK AFTER MIDNIGHT: acetaminophen 500 mg tablet (Tylenol Extra Strength) 1,000 mg PO Q8 PRN(if needed) Take evening before surgery acetaminophen 500 mg tablet (Tylenol Extra Strength) 1,000 mg PO Q8 PRN(if needed) diphenhydramine HCl 25 mg capsule (Benadryl) 50 mg PO HS PRN(if needed) Other Notes If you have any questions please call us at [phone] or [phone] or [phone] or [phone]
--- NOTE | 2024-10-26 12:16 | Anesthesiology Consultation ---
Date of Service October 26, 2024 Assessment & Plan (1) Encounter for pre-operative examination: Chart Review Chart Review: Acceptable Risk for Surgery (pending surgeon ordered PCP clearance ) and Patient seen in Pre Admission Testing - Awaiting PCP clearance 11/15/24 (Anastasia CAM) Right limb restriction Pt currently scheduled as 23 hours observation. If surgeon decides to change patient to Same Day Joint, patient would be acceptable risk for TKA, pending patient is motivated, has good support and surgeon's office completes Same Day Joint Program preop requirements. Per PAT appt on 10/26/24, no recent illness/disease exposures, illness related symptoms, or recent illness/disease positive tests. Will leave to surgeon's discretion if preop Covid testing needed Right knee arthroscopy, partial medial meniscectomy 05/20/24= Done under [facility] with LMA #4. Smooth IV induction. Atraumatic LMA insertion History Surgery Operation Date: 11/23/24 07:00 Proposed Procedures p Right Total Knee Arthroplasty - Carlos Mckeon MD Height/Weight Height: 4 ft 11 in Weight: 87.7 kg Allergies Allergy/AdvReac Type Severity Reaction Status Date / Time erythromycin base Allergy Intermediate ITCHY RASH Verified 10/18/24 10:47 house dust mite Allergy Unknown per Verified 10/18/24 10:47 allergy testing Medications Home Medications Medication Instructions Recorded Confirmed Last Taken CPAP Machine #1 ea 09/20/19 04/03/23 Unknown acetaminophen 500 mg tablet 1,000 mg PO Q8 PRN Pain 05/11/24 10/18/24 Unknown (Tylenol Extra Strength) diphenhydramine HCl 25 mg capsule 50 mg PO HS PRN Pain 10/18/24 10/18/24 Unknown (Benadryl) meloxicam 15 mg tablet 15 mg PO DAILY PRN Pain 10/18/24 10/18/24 Unknown Past Medical History Medical History History of breast cancer diagnosed 10/2011--s/p right lumpectomy with LN dissection; s/p chemo/radiation Right UE restriction History of COVID-19 diagnosed 09/27/2020 > resolved Osteoarthritis Sleep apnea cpap Exercise / Class Metabolic Activity II 4-5 Yardwork/Stairs/Walk up hill (one flight of stairs - no chest pain or SOB ) Past Family History Family History Sister Diabetes Breast cancer, Onset Age: 56 Hypertension Brother Diabetes Colorectal cancer, Onset Age: 35 Hypertension Family hx colonic polyps Mother Diabetes Hypertension Father Diabetes Hypertension Other No family history of adverse response to anesthesia Past Surgical History Surgical History History of arthroscopy of left knee History of arthroscopy of right knee History of carpal tunnel release of both wrists History of colonoscopy with polypectomy History of esophagogastroduodenoscopy (EGD) History of lumpectomy of right breast with lymph node removal History of right breast biopsy malignant History of thumb surgery right tendon release History of tooth extraction History of total hysterectomy with bilateral salpingo-oophorectomy (BSO) History of total left knee replacement (TKR) 01/06/24 @ [facility] History of wisdom tooth extraction Hx of section x2 Hx of tubal ligation Status post trigger finger release right thumb Past Anesthesia History No Hx of Anesthesia Complications and No Family Hx of Anesthesia Complications (with exception to sister - slow to wake - no reintubation or ICU stay ) History of PONV No Hx of PONV and No Hx of Motion Sickness Social History Smoking Status: Never smoker Do You Dip or Chew Tobacco: No Hx Alcohol Use: Yes Alcohol type: wine alcohol intake frequency: holidays/special occasions only substance use type: does not use Review of Systems - Hx of blood transfusion during chemo in 2011 Patient denies chest pain, shortness of breath, dyspnea on exertion, reflux, cough, wheezing, palpitations. No hx of seizures, stroke, NV. No hx of blood clots Physical Exam Vital Signs VITALS BP 131/73 P 63 TEMP 98.1 SP02 96% RESP 16 Constitutional no acute distress ENMT Mouth: no TMJ clicking Thyromental Distance: > or= 3.5 Finger Breadths (3.5) Mallampati Class: II (smaller airway) Mouth / Teeth: 2 1. Cap Missing side teeth and molars Caps and crowns to above picture and side teeth and molars Neck + short neck and + thick neck; neck extension not limited Respiratory normal respiratory effort; no respiratory distress Auscultation: lungs clear to auscultation bilaterally; no wheezes Cardiovascular Rate/Rhythm: regular rate and regular rhythm Heart Sounds: no murmur Vessels: no carotid bruit Musculoskeletal Spine: no pain with cervical ROM Extremities: extremities normal to inspection Psychiatric Orientation: alert Lab Results Anesthesia Preop Results Results Anesthesia Widget: 2 WBC 6.22 K/ul (4.8-10.8) 10/26/24 Hgb 12.4 g/dl (12.0-16.0) 10/26/24 Hct 36.3 % (37.0-47.0) L 10/26/24 Plt 276 K/uL (130-400) 10/26/24 Na 137 mmol/L (136-145) 10/26/24 K 3.9 mmol/L (3.5-5.1) 10/26/24 Cl 107 mmol/L (98-107) 10/26/24 CO2 22 mmol/L (21-32) 10/26/24 BUN 12 mg/dl (6-23) 10/26/24 Creat 0.58 mg/dl (0.6-1.2) L 10/26/24 Glucose Level 92 mg/dl (70-99(Fasting)) 10/26/24 PT 10.3 Seconds (9.0-12.0) 10/26/24 PTT 27 Seconds (21-31) 10/26/24 INR 0.9 (0.9-1.1) 10/26/24 Blood Type B Positive 10/26/24 Antibody Screen NEGATIVE 10/26/24 Testing Electrocardiogram Date: 05/14/24 Findings: + NSR @ (@ 72 bpm) Normal EKG per cardio When compared to EKG from Aug 21, 2022- no significant change was found per cardio. Nondiagnostic inferior Q waves noted similar to EKGs from 2021 and 2018 per cardio Chest X-Ray Date: 12/19/23 Findings: + NAD FINDINGS: Cardiomediastinal and hilar silhouettes are within normal limits. No pneumothorax, pleural effusion or airspace consolidation. Right axillary surgical clips. Probable calcified granuloma the right lateral lung base. Spondylotic spurring of the spine Echocardiogram Date: 07/19/19 EF: 65% LV Function: normal RWMA: + none Other Findings: + diastolic dysfunction (Grade 1); no LVH Valvular Disease: + no significant valvular disease Normal pulmonary artery pressures
[2024-11-23] MEDS: LR 500ML BOLUS, THEN 15ML/HR IV SCH (05:51)
[2024-11-23] MEDS: ACETAMINOPHEN 500 MG TAB PO SCH ×2 (05:52→14:17)
[2024-11-23] MEDS: FAMOTIDINE 20 MG TAB PO SCH (05:52)
[2024-11-23] MEDS: GABAPENTIN 300 MG CAP PO SCH (05:52)
[2024-11-23] MEDS: METOCLOPRAMIDE HCL 10 MG TABLET PO SCH (05:52)
[2024-11-23] MEDS: dexAMETHasone**PF** 10 MG/ML VIAL IV SCH (05:52)
[2024-11-23] MEDS: oxyCODONE HCL 10 MG TABCR (OxyCONTIN) PO SCH (05:52)
[2024-11-23] MEDS: CeleBREX 200 MG CAP PO SCH (05:52)
[2024-11-23] MEDS: traMADol HCL 50 MG TABLET PO SCH (05:52)
[2024-11-23] MEDS: LR 60ML/HR IV SCH (05:53)
--- OUTSIDE RECORDS SUMMARY | 2024-11-23 06:11 | External Medical Summary | Continuity of Care Document ---
Author Name Unknown Organization [address] Address [address] [place], [place] [id number] Care Team Providers Care Waiter/Waitress Cabin Class Name Role Phone Anastasia Hannon Primary Care Physician [phone] [facility]counter [id number] Date(s): 11/15/24 - 11/15/[address] [facility] [address] [address] [phone] Encounter Diagnosis Body mass index [BMI] 38.0-38.9, adult(Discharge Diagnosis) - 11/15/24 Pre-op exam(Discharge Diagnosis) - 11/15/24 HEATHER on CPAP(Discharge Diagnosis) - 11/15/24 Discharge Disposition: Home or Self Care Attending Physician: DORINA Hannon Tara Referring Physician: DORINA Hannon Tara Allergies, Adverse Reactions, Alerts Substance Criticality Severity Reaction Reaction Severity Status erythromycin hives Active Dust mite reacted positiv e to testing Active Assessment and Plan Extracted from: Title:preop Author:DORINA Hannon Tara Date:11/15/24 1.Pre-op exam 2.HEATHER on CPAP Pt having knee replacement with Dr. Mckeon on11/23/24.Pt denies SOB going up 2 flights of steps, claudication, chest pain, Personal or family hx of anesthesia issues, no personal or family hx of VTE and no family hx of suddencardiac . EKG 05/14/24 NSR. Non diagnostic inferior Q waves. No change from ekg [id number] or 2018. CXR 12/19/23 +NAD CBC and cmp are nl/unremarkable from 10/26/24.PT/PTT/INR are nl. She is using her CPAP. Revised Cardiac Risk Index: Score =0 [_] High Risk Surgery [_] Ischemic Heart Disease [_] History of CHF [_] History of cerebrovascular disease [_] Insulin therapy for DM [_] Pre-op Cr >2 Estimated Risk of Adverse Outcome with Non-cardiac Surgery Very Low Risk Estimated Rate of Myocardial Infarction, Pulmonary Edema, Ventricular Fibrillation, Cardiac Arrest, or Complete Heart Block 0.4 % May proceed with surgery. time spent reviewing chart, preop labs, anesthesia note, EKG, CXR, face to face visit, ordersand documentation: 36 min Immunizations Given and Recorded Vaccine Date Status Refusal Reason tetanus/diphtheria/pertuss, acel (Tdap) 08/27/24 G iven tetanus/diphtheria/pertuss, acel (Tdap) 01/07/12 G iven tetanus/diphtheria/pertuss, acel (Tdap) 03/26/07 R ecorded tetanus/diphtheria/pertuss, acel (Tdap) 12/16/02 R ecorded pneumococcal 20-valent conjugate vaccine 08/25/23 Given SARS-CoV-2 (COVID-19) mRNA-1273 vaccine 1 05/04/21 Recorded SARS-CoV-2 (COVID-19) mRNA-1273 vaccine 2 04/06/21 Recorded SARS-CoV-2 (COVID-19) mRNA-1273 vaccine 02/08/21 R ecorded SARS-CoV-2 (COVID-19) mRNA-1273 vaccine 12/11/20 R ecorded influenza virus vaccine, inactivated 09/09/20 Octavio rded influenza virus vaccine, inactivated 08/27/19 Octavio rded influenza virus vaccine, inactivated 08/27/18 Octavio rded influenza virus vaccine, inactivated 08/26/13 Give n influenza virus vaccine, inactivated 08/13/12 Give n influenza virus vaccine, inactivated 08/02/11 Octavio rded zoster vaccine, inactivated 11/24/19 Given zoster vaccine, inactivated 09/10/19 Given pneumococcal 23-valent vaccine 01/07/12 Given pneumococcal 23-valent vaccine 10/01/96 Recorded pneumococcal 23-valent vaccine 3 10/01/96 Recorded zoster vaccine live 12/25/11 Given hepatitis A adult vaccine 06/11/10 Recorded 1Result Comment: 2022-08-21: Historical information-source unspecified 2Result Comment: 2022-08-21: Historical information-source unspecified 3Result Comment: [08/26/2013 Uncharted] duplicate Medications CPAP machine Start: 05/27/19 4:08:00 PM EDT, CPAP machine, eRx Product Type: Supply, See Instructions, Disp# 1 unit, CPAP machine with tubing/supplies & humidifier nightly use, send report in 30 days on compliance & results Start Date: 05/27/19 Status: Ordered CPAP mask & supplies Start: 09/10/19 8:15:00 AM EDT, CPAP mask & supplies, eRx Product Type: Supply, See Instructions, Disp# 1 each, full face mask with tubing & supplies - order good for lifetime use G47.33, [facility]: fit to comfort with mask type when needed Start Date: 09/10/19 Status: Ordered ketoconazole 2% topical cream Start: 11/25/23 9:32:00 AM EST, 1 appl, topical, bid, Disp# 30 g, Refills: 2, To red scaly fungal areas BID PRN, Pharmacy: [id number] Start Date: 11/25/23 Status: Ordered Mobic 15 mg oral tablet Start: 10/26/24 11:34:00 AM EST, 1 tab, PO, Daily, Disp# 30 tab, Refills: 1, PRN: Pain, Pharmacy: [id number] Start Date: 10/26/24 Status: Ordered Soolantra 1% topical cream Start: 10/20/24 7:29:00 AM EST, See Instructions, Disp# 60 g, Refills: 2, To face daily, Pharmacy: [id number] Start Date: 10/20/24 Status: Ordered Valtrex 1 g oral tablet Start: 11/20/22 8:56:00 AM EST, See Instructions, Disp# 12 tab, Refills: 1, 2 tab PO at onset of cold sore, repeat in 12 hours then stop, Pharmacy: [id number] Start Date: 11/20/22 Status: Ordered Mental Status 11/15/24 Barriers to Learning one year None evide nt Mandatory Health Literacy Documentation Yes Health Literacy Communication Barriers N ever Primary Language Guamanian Problem List Condition Confirmation Course Effective Dates Status H ealth Status Informant Arthritis of left knee Confirmed Active Multiple nevi Confirmed Active Chondromalacia, left knee Confirmed Active Knee effusion, right Confirmed Active Family history of diabetes mellitus 1 Confirmed Active Stress incontinence in female 2 Confirmed Active FH: breast cancer in first degree relative Confirmed 12/24/11 Active FH: colon cancer 3, 4 Confirmed 12/24/11 Active FHx: uterine cancer Confirmed 12/24/11 Active Herpes simplex Confirmed Active History of breast cancer Confirmed Active S/P total knee arthroplasty Confirmed Active INSOMNIA Confirmed Active Lentigo Confirmed Active HEATHER on CPAP Confirmed Active Osteoarthritis of left knee Confirmed Active Right knee DJD Confirmed Active Osteopenia 5 Confirmed 06/03/12 Active Left knee pain Confirmed Active Right knee pain 6 Confirmed 08/27/24 Active Tinea versicolor Confirmed Active Rosacea Confirmed Active Medial meniscus tear Confirmed Active Weight disorder Confirmed Active 1mother, father, sister, brother 2only with coughing 3Brother at 35 yr. 4Father (?) 5--1.1 LS spine 6Added per Litigation Manager [id number]/23/24 Diagnosis Diagnosis Type Effective Dates Health Status Cl inical Service Informant HEATHER on CPAP Discharge Diagnosis 11/15/24 Non-Specified Body mass index [BMI] 38.0-38.9, adult Discharge Diagnosis 11/15/24 Non-Specified Pre-op exam Discharge Diagnosis 11/15/24 Non-Specified Procedures Procedure Date Related Diagnosis Body Site Status Arthroscopy of knee with med ial meniscectomy 1 05/20/24 Completed Total knee arthroplasty 2 01/06/24 Completed Mammogram 3 04/08/23 Completed Procedure 4 04/03/23 Completed MRI of calf of left lower le g with contrast 5 03/25/23 Completed Colonoscopy 6 01/23/21 Completed Colonoscopy 7 01/23/[address] of chest w/ con 8 06/01/19 Comp leted Femoral neck DEXA scan 9 03/02/19 Completed Chest X-ray 10 12/21/18 Completed Colonoscopy 11 09/08/15 Completed Chest x-ray 12 02/27/15 Completed Colonoscopy normal 13 09/02/12 Com pleted DEXA - Dual energy X-ray germán ton absorptiometry 14 06/03/12 Completed Left Central Venous Cather w ith Subcutaneous Harlan 12/30/11 Completed right partial mastectomy; se ntinel node biopsy 12/09/11 Completed KATARINA BSO - Total abdominal hy sterectomy and bilateral salpingo-oophorectomy 15 09/08/07 Completed Colonoscopy and polypectomy 16 07/16/07 Completed Bilateral tubal ligation 05/22/83 Completed Carpal tunnel decompression 17 Completed sections (two) C ompleted DeQuervaines release Comp leted Lumpectomy of breast-R Co mpleted port removal Completed S/P tooth extraction Comp leted Trigger thumb release Com pleted 1Right Knee Arthroscopy, Partial Medial Meniscectomy, Chondroplasty 2Left 3there is no mammographic evidence of malignancy. a 1 year screening mammogram is recommended 4Repair of left meniscus 51. moderately prominent DJD with high-grade loss of [...] low-grade sprain of the MCL is suspected 6Impression: - The entire examined colon is normal. - No specimens collected. 7The entire examined colon is normal. No specimens collected. Repeat in 5 years. 81. unremarkable postoperative changes right axilla consistent with prior axillary dissection 2. slight nonspecific interstitial change mid and lower lung regions bilaterally 3. several pleual-based nodules within the right hemithorax with f/u recommended per fleischner criteria 9pt considered normal. Z score 0.3 - repeat February 2021 10No active disease in the chest. 11Nonbleeding internal hemorrhoids. Repeat in 5 years. 12No acute findings. No significant change. 13except internal hemorrhoids. Brother with colon cancer at age 35 14--1.1 LS spine 15Dr. Nneka Kumar, [facility], for heavy periods 16hyperplastic polyp 17bilateral Vital Signs Most recent to oldest [Reference Range]: 1 Height 152.3 cm (11/15/24 10:46 AM) Patient Weight 89.4 kg (11/15/24 10:46 AM) Body Mass Index 38.54 kg/m2 (11/15/24 10:46 AM) Temperature [36.5-37.9 DegC] 36.7 DegC (11/15/24 10:46 AM) Heart Rate 75 bpm (11/15/24 10:46 AM) Respiratory Rate 18 br/min (11/15/24 10:46 AM) Blood Pressure 134/60mmHg (11/15/24 10:46 AM) Social History Social History Type Response Smoking Status Never smoked cigaret marques Sex Sex Representation Female (finding) [facility] Outpt Note * DORINA Hannon Tara: PERFORM Event Display: [facility] Outpt Note Authored Date: [id number] Chief Complaint pre-op appt- pt states having RT knee surgery on 11-23-24. States was already seen by pre-anthesthia. History of Present Illness Having right knee replacement 12/10/24. No smoker, no illicit drugs. No She wears a CPAP No Claudication No Chest pain No SOB 2 flights of steps No Personal hx of anesthesia complications No Family hx of anesthesia complications No Personal of hx of VTE,bleeding disorder No Family hx of VTE,bleeding disorder No Family hx of sudden cardiac Review of Systems Constitutional: No fever, chills, sweats EENT:No vision change, eye pain, rhinorrhea, sinus pain, epistaxis, dysphagia, change in hearing,tinnitus, vertigo, oral ulcers or lesions. Pulmonary: No shortness of breath, dyspnea with exertion, cough, hemoptysis, wheezing, chest pain. Cardiovascular: No chest pain, palpitations, syncope, edema, cyanosis, claudication, orthopnea. GI: No nausea, vomiting, diarrhea, melena, hematochezia, change in appetite, abdominal pain, changein bowel habits or stools Neurologic: No headache, lightheadedness, dizziness Psychiatric: No depression, anxiety Endocrine: No weight change, heat or cold intolerance, tremor, insomnia, polyuria, polydipsia, polyphagia, abnormal hair growth, change in nails Physical Exam Vitals & Measurements T:36.7C HR:75(Monitored) RR:18 BP:134/60 SpO2:95% HT:152.3cm WT:89.4kg WT:89.400kg(Dosing) BMI:38.54 PHQ2 Data(Data Documented on:11/15/2024 10:46) Emotional health assessment NEGATIVE head- normocephalic eyes- PERRLA , conjunctiva clear, sclera white, anicteric, neck-no lymphadenopathy, masses, or thyromegaly, +carotid pulses, no bruits, trachea midline Pulmonary- chest expansion symmetric, CTA (clear to auscultation), eupnea, no adventitious sounds (rales, crackles, wheezes) CV (cardiovascular)- RRR no m/r/g (systolic ejection murmur, rubs, gallops), good peripheral perfusion extremitiesNo edema or erythema. skin-good turgor w/o lesions, redness, cyanosis, edema nails- no clubbing or deformities w good cap refill Neuro:Alert, Oriented Psy:no homicidal or suicidal ideations. Assessment/Plan 1.Pre-op exam 2.HEATHER on CPAP Pt having knee replacement with Dr. Mckeon on11/23/24.Pt denies SOB going up 2 flights of steps, claudication, chest pain, Personal or family hx of anesthesia issues, no personal or family hxof VTE and no family hx of suddencardiac . EKG 05/14/24 NSR. Non diagnostic inferior Q waves. No change from ekg [id number] or 2018. CXR 12/19/23 +NAD CBC and cmp are nl/unremarkable from 10/26/24.PT/PTT/INR are nl. She is using her CPAP. Revised Cardiac Risk Index: Score =0 [_] High Risk Surgery [_] Ischemic Heart Disease [_] History of CHF [_] History of cerebrovascular disease [_] Insulin therapy for DM [_] Pre-op Cr >2 Estimated Risk of Adverse Outcome with Non-cardiac Surgery Very Low Risk Estimated Rate of Myocardial Infarction, Pulmonary Edema, Ventricular Fibrillation, Cardiac Arrest,or Complete Heart Block 0.4 % May proceed with surgery. time spent reviewing chart, preop labs, anesthesia note, EKG, CXR, face to face visit, ordersand documentation: 36 min Problem List/Past Medical History Ongoing Arthritis of left knee Chondromalacia, left knee Family history of diabetes mellitus FH: breast cancer in first degree relative FH: colon cancer FHx: uterine cancer Herpes simplex History of breast cancer INSOMNIA Knee effusion, right Left knee pain Lentigo Medial meniscus tear Multiple nevi HEATHER on CPAP Osteoarthritis of left knee Osteopenia Right knee DJD Right knee pain Rosacea S/P total knee arthroplasty Stress incontinence in female Tinea versicolor Weight disorder Resolved Acute contact dermatitis ASCVD. Breast ca Bronchitis Changing skin lesion Chemotherapy Community acquired pneumonia Cough Eclipse nevi Exertional shortness of breath Fungal infection of skin Hives Impaired fasting glucose Need for prophylactic vaccination and inoculation against influenza Obstructive sleep apnea syndrome Partial mastectomy Pneumonia ROUTINE GENERAL MEDICAL EXAMINATION AT A HEALTH CARE FACILITY Sinus congestion Sleep apnea Procedure/Surgical History Arthroscopy of knee with medial meniscectomy| Service Date: 05/20/2024Total knee arthroplasty| Service Date: 01/06/2024Mammogram| Service Date: 04/08/2023rocedure| Service Date: 04/03/2023MRI of calf of left lower leg with contrast| Service Date: 03/25/2023olonoscopy| Service Date: 01/23/2021olonoscopy| Service Date: 01/23/2021T of chest w/ con| Service Date: 06/01/2019Femoral neck DEXA scan| Service Date: 03/02/2019Chest X-ray| Service Date: 12/21/2018Colonoscopy| Service Date: 09/08/2015Chest x-ray| Service Date: 02/27/2015Colonoscopy normal| Service Date: 09/02/2012DEXA - Dual energy X-ray photon absorptiometry| Service Date: 06/03/2012Left Central Venous Cather with Subcutaneous Harlan| Service Date: 12/30/2011right partial mastectomy; sentinel node biopsy| Service Date: 12/09/2011TA BSO - Total abdominal hysterectomy and bilateral salpingo-oophorectomy| Service Date: 09/08/2007Colonoscopy and polypectomy| Service Date:07/16/2007Bilateral tubal ligation| Service Date: 05/22/1983Trigger thumb releaseDeQuervaines releaseCarpal tunnel decompressionLumpectomy of breast-Rcesarean sections (two)port r emovalS/P tooth extraction Medications ivermectin topical(Soolantra 1% topical cream), See Instructions, 2 refills ketoconazole topical(ketoconazole 2% topical cream), 1 appl, topical, bid, 2 refills meloxicam(Mobic 15 mg oral tablet), 15 mg= 1 tab, PO, Daily, PRN, 1 refills unlisted medication(CPAP machine), See Instructions unlisted medication(CPAP mask & supplies), See Instructions valACYclovir(Valtrex 1 g oral tablet), See Instructions, 1 refills Allergies Dust mitereacted positive to testing erythromycinhives Social History Smoking Status Never smoked cigarettes Alcohol - No Risk Use:Current Type:Wine Frequency:1-2 times per month Average drinks per episode in last year:1 Employment/School Status:Employed Description:accounts payable at [employer] Exercise - Does not exercise Times per [...] possibly colon cancer Immunizations Vaccine Date Status tetanus/diphtheria/pertuss, acel (Tdap) 08/27/2024 Given pneumococcal 20-valent conjugate vaccine 08/25/2023 Given SARS-CoV-2 (COVID-19) mRNA-1273 vaccine 05/04/2021 Recorded Comments : 2022-08-21: Historical information-source unspecified SARS-CoV-2 (COVID-19) mRNA-1273 vaccine 04/06/2021 Recorded Comments : 2022-08-21: Historical information-source unspecified SARS-CoV-2 (COVID-19) mRNA-1273 vaccine 02/08/2021 Recorded SARS-CoV-2 (COVID-19) mRNA-1273 vaccine 12/11/2020 Recorded influenza virus vaccine, inactivated 09/09/2020 Recorded zoster [...] Health Maintenance Pending(in the next year) OverDue Medicare Annual Wellness Visit due08/21/23and every 1year Adult Influenza Vaccine due05/10/24and every 1year Due Adult Social Determinants of Health Screening due11/15/24Unknown Frequency Satisfied(in the past 1 year) Satisfied Adult Tdap/Td Vaccine on08/27/24.Satisfied by DAMON Ware Kirsten Body Mass Index on11/15/24.Satisfied by DAMON Whitney Natalie Lipid Screening on08/19/24.Satisfied by Contributor_system, [employer] Electronic Signature on File Electronically Reviewed/Signed by: DORINA Sidhu Author Signature Dt/Tm:11/15/2024 11:33 AM Department of Family Medicine TB Patient Care team information Care Team Personnel Name: DORINA Hannon Tara Position: Nurse Pract - Family Med Member Role: Lifetime Relationship Address: [address] [place] [address] [place] Name: MD Dannie, Brenna Jackson Position: Physician - Radiologist Member Role: Lifetime Relationship Address: [address] [place] [id number] [place] Name: CARLIN Bush Lynn Position: Physician Laundry Presser Exempt - Vasc Surg Member Role: Lifetime Relationship Address: [address] [place] [address] [place] Name: MD Randall Juan Position: Physician - Family Med Member Role: Lifetime Relationship Address: [address] [place] [address] [place] Care Team Related Persons Name: AGUSTÍN BLAND Name: AGUSTÍN BLAND"
--- OUTSIDE RECORDS SUMMARY | 2024-11-23 06:12 | External Medical Summary | Continuity of Care Document ---
Author Name Unknown Organization [facility] [id number] Address [address] [place] [id number] Care Team Providers Care Cyber Systems Administrator Name Role Phone ParvezAnastasia Primary Care Physician [phone] Encounter [facility] [id number] Date(s): 10/26/24 - 10/26/[address] [facility] [address] [id number] [facility] [address] [place] [address] Encounter Diagnosis Right knee DJD(Discharge Diagnosis) - 10/26/24 Discharge Disposition: Home or Self Care Attending Physician: CARLIN William, Nneka Santana Referring Physician: MD Linda, Carlos Carbajal Allergies, Adverse Reactions, Alerts Substance Criticality Severity Reaction Reaction Severity Status erythromycin hives Active Dust mite reacted positiv e to testing Active Immunizations Given and Recorded Vaccine Date Status [...] red scaly fungal areas BID PRN, Pharmacy: [id number] Start Date: 11/25/23 Status: Ordered Mobic 15 mg oral tablet Start: 10/26/24 11:34:00 AM EST, 1 tab, PO, Daily, Disp# 30 tab, Refills: 1, PRN: Pain, Pharmacy: [id number] Start Date: 10/26/24 Status: Ordered Soolantra 1% topical cream Start: 10/20/24 7:29:00 AM EST, See Instructions, Disp# 60 g, Refills: 2, To face daily, Pharmacy: [id number] Start Date: 10/20/24 Status: Ordered Valtrex 1 g oral tablet Start: 11/20/22 8:56:00 AM EST, See Instructions, Disp# 12 tab, Refills: 1, 2 tab PO at onset of cold sore, repeat in 12 hours then stop, Pharmacy: [id number] Start Date: 11/20/22 Status: Ordered Mental Status 10/26/24 Barriers to Learning one year None evide nt Mandatory Health Literacy Documentation Yes Health Literacy Communication Barriers N ever Primary Language Guinean Problem List Condition Confirmation Course Effective Dates [...] Confirmed 08/27/24 Active Tinea versicolor Confirmed Active Reactive airway disease Confirmed Active Rosacea Confirmed Active Medial meniscus tear Confirmed Active Weight disorder Confirmed Active 1mother, father, sister, brother 2only with coughing 3Brother at 35 yr. 4Father (?) 5--1.1 LS spine 6Added per Certified Recreational Therapist Dacylg-NS-56/23/24 Diagnosis Diagnosis Type Effective Dates Health Status Cl inical Service Informant Right knee DJD Discharge Diagnosis 10/26/24 Procedures Procedure Date Related Diagnosis Body Site [...] Left Central Venous Cather w ith Subcutaneous [facility] 12/30/11 Completed right partial mastectomy; se ntinel [...] 35 14--1.1 LS spine 15Dr. Nneka Kumar, [facility], for heavy periods 16hyperplastic polyp 17bilateral Vital Signs Most recent to oldest [Reference Range]: 1 Height 149.5 cm (10/26/24 11:22 AM) Patient Weight 88.4 kg (10/26/24 11:22 AM) Body Mass Index 39.55 kg/m2 (10/26/24 11:22 AM) Heart Rate 64 bpm (10/26/24 11:22 AM) Blood Pressure 120/82mmHg (10/26/24 11:22 AM) Cuff Pulse Pressure 38 mmHg (10/26/24 11:22 AM) Social History Social History Type Response Smoking Status Never smoked cigaret marques Sex Sex Representation Female (finding) Pre-OP H & P * CARLIN William Jennifer R: PERFORM Event Display: Pre-OP H & P Authored Date: [id number] Name:ALLY BLAND Patient Number:[id number] :1955 Date of Service:10/26/2024 Chief Complaint Pre op R total knee History of Present Illness [id number] mendiola presents today fora preoperative history and physical. She is scheduled to have a right total knee arthroplasty with Dr. Mckeon on November 23, 2024. She describes shooting pain in her kneecap especially when she is sitting and/or standing.She also has medial sided knee pain which is constant. She denies any swelling in her right knee. She states that she also has night pain which prevents her from sleeping comfortably. She recently underwent a right knee arthroscopy partial medial meniscectomy and chondroplasty in May 2024.She also had a cortisone injection performed in July 2024 which did not provide any significant relief. She also has been taking meloxicam on an as-needed basis which does seem to help. She underwent a left total knee arthroplasty in December 2023 and has been doing very well from that. Due to her failure of conservative treatment and progressively worsening symptoms in the right knee she would like to progress with surgical intervention. She has been offered a total knee arthroplasty and has agreed to proceed. Review of Systems Denies any recent cough, cold, fevers, chills or flulike symptoms. He denies any lightheadedness, dizziness, syncopal episodes, headaches, migraines or seizures. Denies any bleeding or clotting disorders or history of DVT or pulmonary embolism. Denies any recent hospitalizations. Denies any historyof metal sensitivity, latex allergy or MRSA. Denies any shortness of breath or chest pain. Denies abdominal pain, heartburn, indigestion, nausea, vomiting, diarrhea or constipation. Denies any urinary tract infections. Denies any hearing or vision changes. Denies any dental problems. Physical Exam Vitals & Measurements HR:64(Monitored) BP:120/82 SpO2:96% HT:149.5cm WT:88.4kg WT:88.400kg(Dosing) BMI:39.55 BMI:39.55 kg/m2 Vitals:Last Updated 10/26/24 11:22 Date Temp BP Location Pulse RR SpO2 Pain 10/26/24 120/82 64 96 5 09/03/24 9 08/27/24 36.7 120/68 65 17 96 8 Height and Weight:Last Updated 10/26/24 11:22 Date BMI Wt(kg) Wt(lb) Method Ht(cm) (ft-in) Method 10/26/24 39.55 88.4 194 Standing Scale 149.5 4-11 Standing 08/27/24 38.67 87 191 Standing Scale 150 4-11 Standing 05/14/24 38.04 85.6 188 Standing Scale 150 4-11 General:Well-dressed, well-nourished. Normal mood and affect. Alert and oriented x3. HEENT:Head: Atraumatic, normocephalic. Eyes: Extraocular movements intact, pupils equal round and reactive to light, sclera normal. Ears: Ears grossly normal, TMs are clear normal light reflex.Nose: Nares are patent bilaterally. Throat: Oropharynx clear mucous membranes moist good dentition uvula midline. Neck:Supple, no lymphadenopathy, nontender palpation, full range of motion. Cardiac:Regular rate and rhythm, normal S1, S2. No murmurs, rubs or gallops appreciated. Lungs:Clear to auscultation bilaterally. No adventitious sounds. No accessory muscle use. Abdomen:Soft, nontender, nondistended, normal bowel sounds heard in all 4 quadrants. Extremities: Focusing on the patient'sRIGHTlower extremity: FULL Painless movement of the hip Knee ROM: 0/3/135 SMALL effusion in the right knee NO Lateral tenderness Slight medial patellar tenderness No dysesthesias No swelling in the leg or skin discoloration Positive tenderness medial joint line Skin healthy and intact. Ligaments intact Diagnostic Results X-RAY: 4views of thebilateral kneesobtained today and personally interpreted by me taken at [facility] show an uncomplicated L TKA. No loosening, wear, osteolysis or fracture. Revision Tibial stem in place.Right knee no fractures, +POSITIVE Effusion. [place] view shows near bone on bone changes of the right knee with no evidence of avascular necrosis. There is no fracture. Thedegree of arthritishas advanced compared to previous filmsback inthe summer. I reviewed X-Rays of the bilateral knees from05/10/2024 which shows that whencompared to today's images she has progressively lost joint space and had further deterioration of the cartilage in the right knee. Bone spurs are present. Assessment/Plan 1.Right knee DJD Patient is scheduled for right total knee arthroplasty with Dr. Mckeon on November 23, 2024. Risks and complications of the procedure were explained to the patient and include but are not limitedto infection, pain, bleeding, scarring, nerve or blood vessel damage, wound problems, weakness, stiffness, incomplete relief of symptoms, hardware failure, hardware loosening, wear, fracture, tendon or ligament injury, blood clots, embolisms, heart attack, stroke and . All questions were answered and informed consent was obtained. She will have preadmission testing later today which we will obtain a preoperative CBC, BMP, PT/INR,PTT and type and screen. She does not need an EKG, chest x-ray or leg length film today. She will preoperative medical clearance with her family physician scheduled for November 15, 2024. She does have a walker and a cane. She requested a prescription for a shower chair or bench that she can obtain preoperatively. Her last surgery she barred her [id number]'s but he is also getting his knee replaced closely after hers and will need his. She was given a handicap parking placard for 6-month temporary placard. She knows about the antibiotics before dental appointment. She was instructed no dental appointments for at least 3 months after her procedure. She will stay overnight in the hospital. She will go home with home health and attend outpatient physical therapy when appropriate here in our office.She was instructed on theusage of theCHG wipes. She will be prescribed oxycodone, tramadol at the time of discharge fromthe hospital. She will also be placed on Eliquis for DVT prophylaxis which will also be provided at the time of discharge. Her 2-week postoperative appointment has been scheduled. Postoperativecourse was discussed. She understands and agrees with the plan. She knows to call with any further problems, questions or concerns.She will be prescribed oxycodone, tramadol at the time of discharge from the hospital. She will also be placed on Eliquis for DVT prophylaxis which will also be provided at the time of discharge. Her 2-week postoperative appointment has been scheduled. Postoperative course was discussed. She understands and agrees with the plan. She knows to call with any further problems, questions or concerns. This chart was completed utilizing [employer] voice recognition software. Grammatical errors, random word insertions, pronoun errors, and in complete sentences are an occasional consequence of the system. Any questions or concerns about the content, text, or information contained within the body of this dictation should be addressed directly to the provider for clarification. Problem List/Past Medical History Ongoing Arthritis of left knee Chondromalacia, left knee Family history of diabetes mellitus FH: breast cancer in first degree relative FH: colon cancer FHx: uterine cancer Herpes simplex History of breast cancer INSOMNIA Knee effusion, right Left knee pain Lentigo Medial meniscus tear Multiple nevi HEATHER on CPAP Osteoarthritis of left knee Osteopenia Reactive airway disease Right knee DJD Right knee pain Rosacea [...] left lower leg with contrast| Service Date: 3Colonoscopy| Service Date: 01/23/2021olonoscopy| Service Date: 01/23/2021T of chest w/ con| Service Date: 06/01/2019Femoral neck DEXA scan| Service Date: 03/02/2019Chest X-ray| Service Date: 12/21/2018Colonoscopy| Service Date: 09/08/2015Chest x-ray| Service Date: 02/27/2015Colonoscopy normal| Service Date: 09/02/2012DEXA - Dual energy X-ray photon absorptiometry| Service Date: 06/03/2012Left Central Venous Cather with Subcutaneous [facility]| Service Date: 12/30/2011right partial mastectomy; sentinel node biopsy| Service Date: 12/09/2011TAH BSO - Total abdominal hysterectomy and bilateral salpingo- oophorectomy| Service Date: 09/08/2007Colonoscopy and polypectomy| Service Date:07/16/2007Bilateral tubal ligation| Service Date: 05/22/1983Trigger thumb releaseDeQuervaines releaseCarpal tunnel decompressionLumpectomy of breast-Rcesarean sections (two)port removalS/P tooth extraction Medications Home ivermectin topical(Soolantra 1% topical cream), See Instructions, [...] mitereacted positive to testing erythromycinhives Social History Alcohol - No Risk Use:Current Type:Wine Frequency:1-2 times per month Average drinks per episode in last year:1 Exercise - Does not exercise Home/Environment Lives with:Spouse Home equipment:CPAP/BiPAP Substance Abuse - Denies Substance Abuse Tobacco - Denies Tobacco Use Use:Never smoker She is currently retired. Family History Breast cancer: Sister (Dx at [...] Age: 83 Years, Cause: possibly colon cancer Electronic Signature on File Electronically Reviewed/Signed by: Nneka William PA-C Author Signature Dt/Tm:10/26/2024 01:26PM Division of Sports Medicine Electronically Reviewed/Signed by: Carlos Mckeon MD Cosigner Signature Dt/Tm: 10/26/2024 03:03 PM Division of Sports Medicine [facility] Patient Care team information Care Team Personnel Name: DORINA Hannon Tara Position: Nurse Pract - Family Med Member Role: Lifetime Relationship Address: [address] [place] [address] [place] Name: MD Pandey Claudia J Position: Physician - Radiologist Member Role: Lifetime Relationship Address: [address] [place] [id number] [place] Name: CARLIN Bush Lynn Position: Physician Varsity Baseball Coach Exempt - Vasc Surg Member Role: Lifetime Relationship Address: [address] [place] [address] [place] Name: MD Randall Juan Position: Physician - Family Med Member Role: Lifetime Relationship Address: [address] [place] [address] Care Team Related Persons Name: AGUSTÍN BLAND Name: AGUSTÍN BLAND"
[2024-11-23] MEDS ORDERED: fentaNYL citrate PF 100 MCG/2 ML VIAL ONE ×2 (06:22→09:04)
[2024-11-23] MEDS ORDERED: ROPIVACAINE 0.5% 5 MG/ML 30 ML VIAL ONE (06:22)
[2024-11-23] MEDS ORDERED: BUPIVACAINE 0.5 % 5 MG/1 ML PF 10ML VIAL ONE (06:22)
[2024-11-23] MEDS ORDERED: PROPOFOL IV EMULSION 10 MG/ML 20 ML VIAL IV ONE ×3 (06:22→08:24)
[2024-11-23] MEDS ORDERED: MIDAZOLAM HCL 1 MG/ML 2ML VIAL ONE (06:23)
[2024-11-23] MEDS ORDERED: ePHEDrine sulfate 50 MG/ML AMP IV PRN (06:38)
[2024-11-23] MEDS ORDERED: ONDANSETRON INJ 2 MG/ML 2 ML VIAL IV PRN ×2 (06:38→11:51)
[2024-11-23] MEDS ORDERED: fentaNYL citrate PF 100 MCG/2 ML VIAL IV PRN (06:38)
[2024-11-23] MEDS ORDERED: ATROPINE SULFATE 0.1 MG/ML 10ML SYR IV PRN (06:38)
[2024-11-23] MEDS ORDERED: HYDROmorphone INJ 1 MG/ML SYRINGE IV PRN ×2 (06:38→11:51)
[2024-11-23] MEDS: TRANEXAMIC ACID 1,000 MG **IV Pre-op IV SCH (06:41)
--- NOTE | 2024-11-23 06:41 | History & Physical Bridge Note ---
Date of Service November 23, 2024 History & Physical Bridge Note I have examined the patient, reviewed the History & Physical and in the interval since the performance of the History & Physical I have noted the following changes of clinical significance: no changes noted
[2024-11-23] MEDS: ceFAZolin 2000MG 2,000 MG/15 ML SYR IV SCH ×2 (06:50→16:41)
[2024-11-23] MEDS ORDERED: ONDANSETRON INJ 2 MG/ML 2 ML VIAL ONE (07:12)
[2024-11-23] MEDS ORDERED: DEXAMETHASONE SOD INJ 4 MG/ML VIAL ONE (07:12)
[2024-11-23] MEDS ORDERED: ePHEDrine sulfate 50 MG/5 ML SYR ONE (07:12)
[2024-11-23] MEDS ORDERED: KETAMINE HCL 10MG/ML SYR ONE (07:26)
[2024-11-23] MEDS: ROPIV 0.5% 246mg, Ketorolac 30mg, EPINEPHrine 0.5mg in NSS INFIL SCH (07:51)
[2024-11-23] MEDS: VANCOMYCIN HCL 1000MG/20ML VIAL ONE (07:52)
--- NOTE | 2024-11-23 09:50 | Post Operative Brief Note ---
Immediate Post Op Note Date of Surgery November 23, 2024 Pre & Post Diagnosis Operation Date: 11/23/24 07:00 Pre-Op Diagnosis: Right Knee Osteoarthritis Post-Op Diagnosis: Same I identified the patient and participated in the time-out.: Yes Procedure Operation Date: 11/23/24 07:00 Actual Procedures p Right Total Knee Arthroplasty(Right) - Carlos Mckeon MD Surgeon Carlos Mckeon MD Network Security Administrator Nneka COELHO no resident or fellow available Estimated Blood Loss 5 Findings Consistent with Post-Op Diagnosis Specimens Resected bone and soft tissue right knee Anesthesia Type MAC Spinal Regional Complications none Disposition Accompanied Patient To Recovery: No
--- NOTE | 2024-11-23 10:21 | Operative Report ---
Post Operative Report Pre & Post Diagnosis Operation Date: 11/23/24 07:00 Pre-Op Diagnosis: Right Knee Pain Post-Op Diagnosis: Right Knee Pain I identified the patient and participated in the time-out.: Yes Procedure Operation Date: 11/23/24 07:00 Actual Procedures p Right Total Knee Arthroplasty(Right) - Carlos Mckeon MD Surgeon Carlos Mckeon MD Marine Specialist Nneka COELHO no resident or fellow available Estimated Blood Loss 5 Findings Consistent with Post-Op Diagnosis Specimens Bone and soft tissue Anesthesia Type MAC Spinal Regional Description of Procedure Patient was taken to the operating room and placed under spinal anesthesia with peripheral nerve block. She was given 2 g of IV Ancef for surgical prophylaxis. She was also given 1 g of IV TXA for bleeding prophylaxis. She was prepped and draped in routine sterile fashion. Is present during the entire case, please see Dr. Mckeon's operative report for further details regarding today's procedure. Patient was awakened and transferred to the recovery room in stable condition. I attest to the content of the Intraoperative Record and any orders documented therein. Any exceptions are noted below.
--- NOTE | 2024-11-23 10:45 | Anesthesiology Progress Note ---
Date of Service November 23, 2024 Anesthesia Post Procedure Vital Signs Vital Signs: Temp Pulse Resp BP Pulse Ox O2 Del Method O2 Flow Rate 11/23/24 10:35 36.4 C L 86 19 113/62 96 Room Air 11/23/24 10:25 87 18 113/62 97 Oxymask 4 11/23/24 10:18 36.4 C L 86 17 109/61 94 Oxymask 4 11/23/24 05:37 36.5 C 67 20 149/76 H 97 Room Air Pain Intensity Right Knee: Pain Intensity: 0 Transfer of Care Handoff Completed per policy Notes Mental Status: alert / awake / arousable and participated in evaluation Patient Amnestic to Procedure: Yes Nausea / Vomiting: adequately controlled Pain: adequately controlled Airway Patency, RR, SpO2: stable & adequate BP & HR: stable & adequate Hydration State: stable & adequate Neuraxial Anesthesia: was administered and sensory block is resolving Anesthetic Complications: no major complications apparent and Pt Satisfied with anesthetic care
--- NOTE | 2024-11-23 10:47 | XRay Report ---
XR knee RT 1 or 2V routine CLINICAL HISTORY: Postoperative evaluation. COMPARISON: Right knee radiographs September 03, 2024. FINDINGS: Alignment of the total right knee arthroplasty is anatomic. There is no periprosthetic fra cture or unexpected radiopaque foreign body. There are skin barry. IMPRESSION: Expected findings following total right knee arthroplasty. ACT 112: Negative or not required by law. Electronically signed by: Yuriy Yang M.D. 11/23/2024 10:46 AM
--- NOTE | 2024-11-23 11:13 | Operative Report ---
Post Operative Report Pre & Post Diagnosis Operation Date: 11/23/24 07:00 Pre-Op Diagnosis: Right KneeOsteoarthritis Post-Op Diagnosis: Same I identified the patient and participated in the time-out.: Yes Procedure Operation Date: 11/23/24 07:00 Actual Procedures p Right Total Knee Arthroplasty(Right) - Carlos Mckeon MD Surgeon Carlos Mckeon MD Y[employer] Setter Nneka COELHO no resident or fellow available Estimated Blood Loss 5 Findings Consistent with Post-Op Diagnosis Specimens Resected bone and soft tissue Anesthesia Type MAC Spinal Regional Complications none Disposition Accompanied Patient To Recovery: No Disposition: Recovery Room Indications Sara is 69. She has significant right knee pain secondary to arthritis. This has been refractory to nonsurgical treatment including and arthroscopic surgery as well as various types of injections. She wishes to have her knee replaced. Description of Procedure Informed consent. Patient identified. She identified the procedure site as the right knee. I marked with my initials. A preoperative surgical timeout was performed. A preop dose of intravenous antibiotics and TXA were given. She was taken to the operating room positioned supine on the operating room table. The anesthetic was administered. A bump was placed under her right hip. A padded post under the right calf and a tourniquet on the right thigh. The leg was scrubbed and prepped and draped in the usual sterile fashion. DVT prophylaxis intraoperatively with foot pumps. Postop early mobility mechanical devices and Eliquis. The exam under anesthesia revealed small to moderate right knee effusion range of motion 0/1/125. There was trace LCL laxity at 20 degrees knee flexion knee otherwise stable. Intact Helio and posterior drawer. Trace varus alignment. Limb exsanguinated with the Esmarch. Tourniquet inflated to 275 mmHg and later to 300 mmHg. A midline longitudinal incision was made about 20 cm in length followed by medial parapatellar arthrotomy. Soft tissue on the anterior aspect of the distal femur was excised. The retropatellar fat pad was scarred in and this was released. A medial release was performed. The knee was flexed with the patella everted in an easy fashion. There were grade 4 changes over the weightbearing area of the femur 2 to 2-1/2 cm wide and 3 to 4 cm in length i nvolving the entire weightbearing area. The medial meniscus was deficient. There was an area of grade 4 chondrosis 2 cm long and 1 cm wide on the anterior medial aspect of the tibial plateau. Cruciate ligaments were intact. They were resected. The lateral compartment looked normal. The patella showed diffuse grade 3 change with some grade 4 medial. Osteophytes removed. The tibia was subluxated. The cruciate ligaments and the meniscal tissue was removed. The tibial plateau was exposed. A aircraft pilot hole was drilled just in between and in front of the tibial spines. The intramedullary alignment yue was inserted. The 3 degree cutting block was affixed to the proximal tibia. Aligned to the tibial tubercle. Set to take 10 mm off the lateral side which corresponded to 8 mm medially. The extra medullary alignment yue was applied and the slope showed slight posterior slope and the alignment of the yue with the knee extended intersected the second ray and bisected the ankle joint. This cut was made and sized to a 3. A aircraft pilot hole was drilled into the distal femur slightly more central based upon preoperative templating. Intramedullary yue introduced. The distal femoral cutting block was then affixed to the distal femur at a 6 degree right knee valgus angle and an 11 mm thick cut. The collateral ligaments were protected and the cut was made. The insertion of the popliteus tendon was partially resected with this resection. This was distal to the collateral ligaments. The popliteus was later released completely in order to prevent being caught in the lateral compartment. The epicondylar axis was marked out. The distal femoral sizing block was applied and was sized to a 3. The external rotation matched the epicondylar axis. The size 3 anterior cutting block was applied and the collateral ligaments were protected. The anterior posterior and chamfer cuts were made. Osteophytes in the back of the knee medially were removed. Prior to cutting the femur the extension gap was asymmetric 8. After cutting the femur and doing a little bit more medial releasing due to asymmetry the flexion and extension gaps were symmetric tendons. Slightly more loose in flex ion especially lateral. The box cutting guide was applied lateralized and the box cut was made. The trial femur was applied and the lug holes were drilled. The tibia was exposed and then prepared with the reamer x 2 and keel punch for the mobile-bearing revision tibial tray. This was due to body habitus and she also had this on the contralateral side. The trial revision tray was applied and the laxity profile showed initially some tightness and extension and some laxity in flexion. This was addressed by a more extensile medial release and then eventually the 10 insert gave good stability and full extension. Rotation of the tibial component marked. The patella measured 20 mm in thickness. The guide was set to preserve 14 mm of bone. This provisional cut was made which actually measured about 16. I then went ahead and recut the patella and the residual patellar thickness was 14. A 32 patella was selected aligned to the trochlea with the knee in slight flexion and the lug holes were drilled. Patellar tracking was off with the no hands technique at this point. The trial components were removed. Drill holes were made into the chamfer cut medially. Tibia was plugged. Ortho joint mix injected into the back of the knee. Copious irrigation and meticulous preparation bony surfaces was made. 2 bags of Simplex P cement were vacuum mixed and then while in a doughy state the femur tibia and patella were cemented in place and held in full extension until the cemented hardened with a trial spacer. The remainder the Ortho joint mix was injected and further irrigation was done on the knee. After 110 minutes the tourniquet was let down. Cement had hardened. There was still a slight bit of laxity in mid position and at 90 degrees of flexion. I trialed with a 12 mm t hick insert and this actually still allow full extension without difficulty had trace varus valgus laxity at 20 degrees knee flexion and there was no significant varus valgus laxity at 90. Because of this inserted the 12 mm thick polyethylene spacer. Prior to that the back of the knee was inspected for bleeding and cement. Cement was removed as encountered. Patellar tracking was assessed and was off. Composite patellar thickness was 24 mm. I released the synovial flexion in the lateral gutter preserving the geniculate vessels. This improved patella tracking. When 2 stitches were applied medially the patella tracked fine. 1/2 g of vancomycin was applied over the implant. The extensor mechanism was closed above the equator the patella with interrupted #2 FiberWire. Below the equator of the patella with running and interrupted #1 Vicryl. The skin was closed in layers with 0 and 2-0 Vicryl followed by barry on the skin. Patient was then dressed with a bulky soft sterile dressing Xeroform 4 x 4's ABD soft wrap and full-length Jim wrap. She was sent to the floor with a knee immobilizer and a incisional wound VAC to be applied tomorrow. She was awakened from anesthesia taken to recovery in stable condition. The resected bone and soft tissue were sent for specimen. The counts were correct blood loss is 5 cc there were no complications. At the conclusion of the operation spoke to her informed him my findings and postop instructions were given. Plan is to rehabilitate according to the standard total knee protocol. She may weight-bear as tolerated. Eliquis for DVT prophylaxis. Components inserted were the J&J attune knee a size 3 right posterior stabilized femur a 32 patella a size 3 x 12 mm thick polyethylene insert and a size 3 revision mobile-bearing tibial tray I attest to the content of the Intraoperative Record and any orders documented therein. Any exceptions are noted below.
[2024-11-23] MEDS ORDERED: traMADol HCL 50 MG TABLET PO PRN (11:51)
[2024-11-23] MEDS ORDERED: HYDROmorphone INJ 0.5 MG/0.5 ML SYR IV PRN (11:51)
[2024-11-23] MEDS ORDERED: NALOXONE HCL 0.4 MG/1 ML VIAL/CARP IV PRN (11:51)
[2024-11-23] MEDS ORDERED: bisacodyL 10 MG SUPP PR PRN (11:51)
[2024-11-23] MEDS ORDERED: METOCLOPRAMIDE HCL INJ 5 MG/ML 2 ML VIAL IV PRN (11:51)
[2024-11-23] MEDS ORDERED: MAGNESIUM HYDROXIDE SUSP 30 ML UDC PO PRN (11:51)
[2024-11-23] MEDS ORDERED: hydrALAZINE HCL 20 MG/ML VIAL IV PRN (11:51)
[2024-11-23] MEDS: ORTHO JOINT ANESTHETIC ONE (11:55)
[2024-11-23] MEDS: KETOROLAC TROMETHAMINE 15 MG/ML VIAL IV SCH (12:10)
[2024-11-23] MEDS: TRANEXAMIC ACID / 0.7% NACL 1,000 MG/100 ML BAG IV SCH (16:44)
--- NOTE | 2024-11-23 16:50 | Orthopedic Progress Note ---
Date of Service November 23, 2024 Assessment & Plan (1) Knee joint replacement status: Plan: As above Admission and Anticipated Discharge Date Admission Date: November 23, 2024 Orthopedic Progress Note Resting comfortably in bed. No problems reported. She would like a sleeping pill. I suggested Benadryl. Results of the surgery were discussed. Her x-rays show good positioning and no evidence of complication. Her PT and DP pulses are 1+ sensation intact foot is warm capillary refill less than 2 seconds 5 out of 5 ankle and toe plantarflexion dorsiflexion inversion and eversion. She is out of bed with her knee brace on and leg elevated. Plan is for routine postoperative care. PT OT. Eliquis beginning in the morning. Mechanical devices for DVT prophylaxis. Ice elevation. Knee immobilizer when up. Routine postop antibiotics.
[2024-11-23] MEDS ORDERED: CeleBREX 200 MG CAP PO SCH (21:00)
[2024-11-23] MEDS: SENNA 8.6 MG TAB PO SCH (21:18)
[2024-11-23] MEDS: oxyCODONE HCL IR 5 MG TAB (IMMEDIATE RELEASE) PO PRN (21:18)
[2024-11-23] MEDS: DOCUSATE SODIUM 100 MG CAP PO SCH (21:18)
[2024-11-23] MEDS: diphenhydrAMINE 50 MG/ML VIAL IV PRN (21:19)
[2024-11-24 06:56] LABS: Hematocrit (blood only) 34.1 % (37.0-47.0); Hemoglobin 11.7 g/dl (12.0-16.0); Mean Corpuscular Hemoglobin 31.6 pg (25.0-34.0); Mean Corpuscular Hgb Conc 34.3 g/dL (32.0-36.0); Mean Corpuscular Volume 92.2 fL (80.0-100.0); Platelet Count 274 K/uL (130-400); RDW Coefficient of Variation 12.6 % (11.5-14.5); RDW Standard Deviation 42.5 fL (36.4-46.3); White Blood Count 13.79 K/ul (4.8-10.8)
[2024-11-24 07:23] LABS: BUN Creatinine Ratio 21.9 (10-20); Calcium 9.4 mg/dl (8.6-10.3); Potassium 4.2 mmol/L (3.5-5.1)
[2024-11-24] MEDS: CeleBREX 200 MG CAP PO SCH (07:46)
[2024-11-24] MEDS: APIXABAN 2.5 MG TAB PO SCH (07:46)
[2024-11-24] MEDS: MULTIVITAMIN TAB PO SCH (07:46)
[2024-11-24] MEDS: dexAMETHasone 4 MG TAB PO SCH (07:47)
[2024-11-24 08:12] VITALS: BP 143/73; PULSE 61; RESP 18; TEMP 97.7; O2SAT 98
--- NOTE | 2024-11-24 08:17 | Orthopedic Progress Note ---
Date of Service November 24, 2024 Assessment & Plan (1) Knee joint replacement status: Plan: She is doing well. Incisional wound VAC will be applied. She will have PT and OT today. Pending those results we will evaluate for potential discharge. If discharged she will follow-up with me in 2 weeks. She is to focus on rest elevation and icing. Home PT and nursing. Eliquis all TRAM oxycodone stool softener. Any problems with the incisional wound VAC swelling pain etc. please call the office. H&H is okay. White count elevated likely secondary to stress and steroids. She is functioning well. Radiographs are reviewed and show no evidence of complicat ion. Hardware is intact. X-rays reviewed with Sara. Admission and Anticipated Discharge Date Admission Date: November 23, 2024 Subjective She did get some sleep last night. Her pain is manageable. She is otherwise breathing well and tolerating her diet. She is not having any chest pains or shortness of breath. Physical Exam Physical Exam: DP and PT pulses are 1+. Sensation intact. 5 out of 5 ankle and toe plantarflexion dorsiflexion inversion and eversion strength. She has an intact active straight leg raise with slight lag. Dressing is changed. Nneka will come in and put an incisional wound VAC on. There was some bloody drainage on the dressing and there are a few spots of pinpoint bloody drainage from the midportion of the incision. There is some bruising around the incision margins. The wound edges are well-approximated. There is no significant subcutaneous or intra-articular fluid collection. The leg was cleaned with sterile saline and a compressive Jim wrap was applied. Results & Data Vital Signs (Past 12 Hours) Vital Signs Temp Pulse Resp BP Pulse Ox O2 Del Method 11/24/24 08:02 36.5 C 61 18 143/73 H 98 Room Air 11/24/24 03:09 36.7 C 63 16 111/57 L 95 Room Air 11/23/24 23:41 36.5 C 71 16 119/60 94 Room Air Laboratory Results Laboratory Results WBC 13.79 K/ul (4.8-10.8) H 11/24/24 06:14 RBC 3.70 M/uL (4.20-5.40) L 11/24/24 06:14 Hgb 11.7 g/dl (12.0-16.0) L 11/24/24 06:14 Hct 34.1 % (37.0-47.0) L 11/24/24 06:14 MCV 92.2 fL (80.0-100.0) 11/24/24 06:14 MCH 31.6 pg (25.0-34.0) 11/24/24 06:14 MCHC 34.3 g/dL (32.0-36.0) 11/24/24 06:14 RDW Std Deviation 42.5 fL (36.4-46.3) 11/24/24 06:14 RDW Coeff of John 12.6 % (11.5-14.5) 11/24/24 06:14 Plt Count 274 K/uL (130-400) 11/24/24 06:14 MPV 11.0 fL (9.4-12.4) 11/24/24 06:14 Sodium 138 mmol/L (136-145) 11/24/24 06:14 Potassium 4.2 mmol/L (3.5-5.1) 11/24/24 06:14 Chloride 108 mmol/L (98-107) H 11/24/24 06:14 Carbon Dioxide 22 mmol/L (21-32) 11/24/24 06:14 Anion Gap 8 (3-11) 11/24/24 06:14 BUN 16 mg/dl (6-23) 11/24/24 06:14 Creatinine 0.73 mg/dl (0.6-1.2) 11/24/24 06:14 Est Cr Clr Drug Dosing 72.0 ml/min 11/24/24 06:14 eGFR 90.08 11/24/24 06:14 BUN/Creatinine Ratio 21.9 (10-20) H 11/24/24 06:14 Glucose 140 mg/dl (70-99(Fasting)) H 11/24/24 06:14 Calcium 9.4 mg/dl (8.6-10.3) 11/24/24 06:14 Impressions Knee X-Ray 11/23/24 10:25 XR knee RT 1 or 2V routine CLINICAL HISTORY: Postoperative evaluation. COMPARISON: Right knee radiographs September 03, 2024. FINDINGS: Alignment of the total right knee arthroplasty is anatomic. There is no periprosthetic fracture or unexpected radiopaque foreign body. There are skin barry. IMPRESSION: Expected findings following total right knee arthroplasty. ACT 112: Negative or not required by law. Electronically signed by: Yuriy Yang M.D. 11/23/2024 10:46 AM
--- NOTE | 2024-11-24 11:07 | Discharge Summary ---
Date of Service November 24, 2024 Discharge Data Procedures Performed Operation Date: 11/23/24 07:00 Actual Procedures p Right Total Knee Arthroplasty(Right) - Carlos Mckeon MD Hospital Course (1) Knee joint replacement status: Patient was kept in observation at [facility] after undergoing elective right total knee arthroplasty. Surgery was performed on November 23, [address] Mckeon. Surgery was performed a spinal anesthetic and a peripheral nerve block. She tolerated the procedure well without any intraoperative complications. She was given 2 g of IV Ancef preoperatively which was continued for 24 hours after surgery. She was also given 1 g of IV TXA for bleeding prophylaxis preoperatively which was repeated and again 6 hours after that initial dose. She was taken to the recovery room in stable condition. In the recovery room she had x-rays of her right knee which showed a stable right knee prosthesis. She was allowed out of bed, weight-bear as to lerated with the assistance of a walker and a knee immobilizer on her right leg. She was given a regular diet. Her home medications were continued. She was started on Eliquis 2.5 mg p.o. twice daily on November 24, 2024 which will be continued for 2 to 4 weeks after surgery. She was also given thigh-high EARL stockings and AV impulse boots for DVT prophylaxis while in house. She was given IV Toradol, tramadol, oxycodone and IV Dilaudid to use as needed for pain. Her blood pressure was slightly elevated during her inpatient stay most likely due to pain. Her white blood cell count was also slightly elevated with her labs on postoperative day 1 which is most likely from the steroids that she was given prior to surgery and afterwards. Her H&H were stable. She did not develop any lightheadedness dizziness or palpitations after surgery. On postoperative day 1, her postoperative dressings were removed. Her incision was clean, dry and intact. She did have some mild bloody drainage on the dressings but no active bleeding. A Prevena wound VAC was applied of her right lower extremity which she will leave in place for 7 days. Home health instructions were provided for her for this dressing. She was seen and evaluated by physical therapy and Occupational Therapy. She was deemed safe for discharge to her home. Discharge instructions were reviewed. She was discharged to her home in stable condition with home health arrangements on November 24, 2024.
== END 2024-11-24 10:49 | disposition home health service (06) ==
LOC: PACUINP 05:02 → ASU 05:02 → 3E 11:48